=== PATIENT | female | born 1960 | race Caucasian/White ===

== ENCOUNTER 2020-02-22 13:00 | Outpatient (CLI) | payer OTHER, SELFPAY ==
[2020-02-22 14:22] LABS: Hematocrit 39.2 % (37.0-47.0); Hemoglobin 12.5 g/dL (11.5-15.3); Mean Corpuscular HGB Conc 31.9 g/dL (30.0-36.0); Mean Corpuscular Hemoglobin 29.5 pg (28.0-34.0); Mean Corpuscular Volume 92.5 fL (81-99); Mean Platelet Volume 9.5 fL (7.4-10.4); Platelet Count 342 10^3/cmm (130-400); Red Blood Count 4.24 10^6/uL (4.1-5.3); Red Cell Distribution Width 13.3 % (12.1-15.1); White Blood Count 9.4 10^3/uL (4.0-10.0)
[2020-02-22 14:57] LABS: Absolute Segmented Neutrophil 6.7 10/cmm (1.6-7.1); Segmented Neutrophils 72 %; Total Cells Counted 100 (0-100)
[2020-02-22 14:58] LABS: Lymphocytes 20 %; Monocytes Absolute 0.8 10^3/cmm (0.1-0.6); Platelet Estimate Normal (Normal); Smudge Cells Trace
[2020-02-22 14:59] LABS: Anisocytosis 1+
[2020-02-22 15:00] LABS: LAB Peripheral Smear Sent for Review
== END 2020-02-22 13:01 | disposition home or self-care (01) ==
LOC: ONCMED 13:04
PROVIDERS: PCP Nurse Practitioner Family; Visit Provider Internal Medicine Hematology & Oncology
DX: D72.810 Lymphocytopenia (principal)
CPT/HCPCS: 36415; 80500; 85007; 85027

== ENCOUNTER 2020-03-26 13:25 | Outpatient (CLI) | payer OTHER, SELFPAY ==
[2020-03-26 14:21] LABS: Hematocrit 43.2 % (37.0-47.0); Hemoglobin 14.2 g/dL (11.5-15.3); Mean Corpuscular HGB Conc 32.9 g/dL (30.0-36.0); Mean Corpuscular Hemoglobin 30.5 pg (28.0-34.0); Mean Corpuscular Volume 92.9 fL (81-99); Mean Platelet Volume 9.4 fL (7.4-10.4); Platelet Count 299 10^3/cmm (130-400); Red Blood Count 4.65 10^6/uL (4.1-5.3); Red Cell Distribution Width 13.5 % (12.1-15.1); White Blood Count 10.3 10^3/uL (4.0-10.0)
[2020-03-26 14:41] LABS: Alanine Aminotransferase 24 U/L (0-33); Albumin Level 4.6 g/dL (3.5-5.2); Alkaline Phosphatase 164 IU/L (35-105); Anion Gap 14.9 (5-19); Aspartate Amino Transferase 24 U/L (0-32); Blood Urea Nitrogen 11 mg/dL (8-23); Calcium 9.9 mg/dL (8.5-10.5); Carbon Dioxide 32 mmol/L (22-29); Chloride 97 mmol/L (98-107); Globulin 2.7 g/dL (1.3-4.6); Glomerular Filtration Rate 72.9 mL/min (90-130); Glucose 129 mg/dL (65-115); Osmolality Calculated 290 mOsm/kg (285-295); Sodium 141 mmol/L (136-145); Total Bilirubin 0.3 mg/dL (0.15-1.2); Total Protein 7.3 g/dL (6.6-8.7)
[2020-03-26 14:52] LABS: Potassium 2.9 mmol/L (3.5-5.1)
[2020-03-26 15:21] LABS: Absolute Neutrophil 8.8 10^3/cmm (1.4-6.5); Absolute Segmented Neutrophil 8.8 10/cmm (1.6-7.1); Lymphocytes 12 %; Lymphocytes Absolute 1.3 10^3/cmm (1.2-3.4); Monocytes Absolute 0.2 10^3/cmm (0.1-0.6); Platelet Estimate Normal (Normal); Segmented Neutrophils 85 %; Total Cells Counted 100 (0-100)
== END 2020-03-26 13:26 | disposition home or self-care (01) ==
LOC: LAB 13:28
PROVIDERS: PCP Nurse Practitioner Family; Visit Provider Nurse Practitioner Family
DX: D72.810 Lymphocytopenia (principal); R79.89 Other specified abnormal findings of blood chemistry
CPT/HCPCS: 80053; 85007; 85027

== ENCOUNTER 2020-03-28 13:24 | Outpatient (CLI) | payer OTHER, SELFPAY ==
[2020-03-28 14:50] LABS: Potassium 3.6 mmol/L (3.5-5.1)
== END 2020-03-28 13:25 | disposition home or self-care (01) ==
LOC: LAB 13:34
PROVIDERS: PCP Nurse Practitioner Family; Visit Provider Nurse Practitioner Family
DX: E87.6 Hypokalemia (principal)
CPT/HCPCS: 36415; 84132

== ENCOUNTER 2020-04-11 12:35 | Outpatient (CLI) | payer OTHER, SELFPAY ==
--- NOTE | 2020-04-11 12:42 | CT_ITS ---
WS: [id number] CT scan of the abdomen and pelvis with Oral and IV contrast. Additional two-dimensional coronal and s agittal reconstruction was performed. 04/11/2020 Clinical Data: ELEVATED LIVER Enzymes; elevated ALK/LYMPHOCYTOPENIA Comparison: CT abdomen pelvis, 10/01/2015. DLP: 1097.[address] scans at [facility] use at least one of these dose optimization techniques: automat ed exposure control; mA and/or kV adjustment per patient size (includes targeted exams where dose is matched to clinical indication); or iterative reconstruction. Findings: The lower lungs show no nodules, masses or effusions. The liver, spleen, adrenal glands and pancreas are normal. The gallbladder fossa has clips within fr om a cholecystectomy The kidneys show equal bilateral contrast excretion with no masses, hydronephrosis or calculi. There is a posterior lateral right renal cortical cyst measuring 1.3 cm. The abdominal aorta is normal in size. No appendicitis or diverticulitis is seen. There are sigmoid diverticula. Oral contrast is in the sto mach and small bowel and there is no bowel dilatation. No abscess, adenopathy, ascites, mass, obstruc tion or free air is seen. The bladder is unremarkable. No inguinal hernia is seen. The bones of the lower thorax, lumbar spine, pelvis, and hips are normal. CT/CT abdomen pelvis w con* [id number] Impression: Negative for acute intra-abdominal or pelvic abnormalities.
[2020-04-11] MEDS: iohexol 300 mg/mL 50 mL Btl PO (13:52)
[2020-04-11] MEDS: iohexol 300 mg/mL 100 mL Btl IV (14:26)
== END 2020-04-11 12:36 | disposition home or self-care (01) ==
LOC: RADWPI 12:39
PROVIDERS: PCP Nurse Practitioner Family; Visit Provider Nurse Practitioner Family
DX: R94.5 Abnormal results of liver function studies (principal); R74.8 Abnormal levels of other serum enzymes
CPT/HCPCS: 74177; Q9967

== ENCOUNTER 2020-05-20 05:46 | Day surgery (SDC) | payer OTHER, SELFPAY ==
[2020-05-17 12:06] VITALS: BMI 28.1
[2020-05-20 06:06] VITALS: BP 136/74; PULSE 72; RESP 16; TEMP 36.2; O2SAT 98
[2020-05-20] MEDS: sodium chloride 0.9% 1,000 ML 30 ML IV (06:08)
--- NOTE | 2020-05-20 06:15 | ANES.PREANE2 ---
Pre-Anesthetic Assessment Pre-Anesthetic Assessment: Height/Weight: Height 1.73 m Weight 83.915 kg Temp Pulse Resp BP Pulse Ox 97.2 F L 72 16 136/74 98 05/20/20 06:06 05/20/20 06:06 05/20/20 06:06 05/20/20 06:06 05/20/20 06:06 Preop Diagnosis: Right upper back mass Proposed Procedure: Operation Date: 05/20/20 07:00 Proposed Procedures p Excision of right upper back mass 64607 L72.3(Right) - Clarence Parker MD Operation Date: 05/20/20 11:30 Proposed Procedures p EXCISION OF RIGHT UPPER BACK MASS 89797 L72.3(Right) - Clarence Parker MD Familial anesthetic complications: None Was Beta Mahendra taken within 24 hours: N/A Last intake: Intake Last Liquid Date 05/19/20 Last Liquid Time 20:00 Last Solid Date 05/19/20 Last Solid Time 20:00 Social: Social History: No alcohol and No tobacco Exam: Pre-Anes Outpt Exam: alert, oriented x 3, clear to auscultation bilaterally and regular rate & rhythm Airway: Cervical ROM: WNL (has titanium cage - some stiffness) MP: 4 Dentition: False Metabolic: Metabolic: Thyroid Neuropsych: Neuropsych: None reported Anesthetic Plan: ASA status: 2 Anesthesia: MAC Risk of > 500 ml blood loss (7ml/kg in children): No Meds/Allergies Current Medications: Current Medications Generic Name Dose Route Start Last Admin Trade Name Freq PRN Reason Stop Dose Admin Sodium Chloride 1,000 mls @ 30 ml s/hr 05/20/20 06:00 05/20/20 06:08 Sodium Chloride 0.9% IV 05/21/20 05:59 30 mls/hr .Q24H UNIQUE Administration PFSH Anesthesia PFSH: Medical History Sebaceous cyst Surgical History History of colonoscopy with polypectomy History of hysterectomy for benign disease History of laparoscopic appendectomy History of laparoscopic cholecystectomy History of tonsillectomy Family History Denies family history of Anesthesia complication Bleeding disorder Social History Smoking and tobacco status: never smoked Second hand smoke exposure: No Alcohol intake: never Data Anesthesia Cardiac Studies: No Data to Display
--- NOTE | 2020-05-20 06:35 | W.PM.OPSUD ---
Surgery/Procedure H&P Update DATE OF PROCEDURE: May 20, 2020 DATE H&P PERFORMED: 05/13/20 H&P UPDATE INFORMATION: I have reviewed H&P completed within last 30 days, I have examined patient prior to procedure and No changes to prior documentation PREOP DIAGNOSIS: Right upper back mass PRIMARY INDICATION FOR PROCEDURE: The same PLANNED PROCEDURE: Operation Date: 05/20/20 07:00 Proposed Procedures p Excision of right upper back mass 51817 L72.3(Right) - Clarence Parker MD Operation Date: 05/20/20 11:30 Proposed Procedures p EXCISION OF RIGHT UPPER BACK MASS 63778 L72.3(Right) - Clarence Parker MD
[2020-05-20] MEDS: lidocaine 2% INJ 20 mL INJECTION (07:18)
--- NOTE | 2020-05-20 07:28 | P.OP_ITS ---
Operative Report Date of procedure: May 20, 2020 Pre-op Diagnosis: Right upper back mass Post-op diagnosis: same Procedure Done: Excision of right upper back mass likely sebaceous cyst 1.5 x 1.5 cm Specimens removed/disposition: Right upper back mass sutures marked superior and long sutures marked right lateral Surgeon: Clarence Parker Dry Cleaning Supervisor: Gege Reyes Circulating nurse Helene Anesthesia: MAC (fitness leader Dylan) Estimated blood loss (mL): 5 Condition: stable Disposition: same day Brief History: This is a pleasant 59 years old female patient presents to my office with a right upper back mass likely a sebaceous cyst that has been bothering her and draining for some time, did not show signs of infection at the time of evaluation. After further history physical examination and reviewing the chart I did vp & general counsel the patient for excision of right upper back mass. Informed consent per chart Procedure: After identifying the patient holding area, right upper back mass was marked before the procedure by myself, patient was then taken to the operative suite, was placed in left lateral position, all pressure points were padded .IV antibiotics were given per protocol,IV propofol was infused by the anesthesia provider,prep and drape of the right upper back was done under the usual sterile technique. Time-out was done verifying the patient's name/date of /planned procedure and destination after the procedure, all were in agreement. After palpation of the mass infiltration of lidocaine 2%. I did an elliptical incision on top of the mass including the punctum. I was able to dissect using sharp dissection and the whole cyst was excised from the surrounding tissues, short sutures marked superior and long sutures marked lateral. Thorough irrigation of the cavity was done and hemostasis, followed by deep dermal closure by 2-0 Vicryl, then 4/0 Monocryl for skin closure, followed by surgical glue then pressure dressing. Patient tolerated the procedure well, count of instruments,needles and sponges were completed at the end of the procedure. And then patient was taken to the recovery area in stable condition. I was present for the whole entire procedure Associated Problem List Diagnoses (1) Sebaceous cyst:
[2020-05-20 07:33] VITALS: BP 111/76; PULSE 81; RESP 16; TEMP 36.6; O2SAT 99
[2020-05-20 07:48] VITALS: BP 126/80; PULSE 82; RESP 16; TEMP 36.6; O2SAT 98
== END 2020-05-20 08:05 | disposition home or self-care (01) ==
PROVIDERS: PCP Nurse Practitioner Family; Visit Provider Surgery
PROC: (CPT 11404; principal; 2020-05-20 07:00)
DX: L72.3 Sebaceous cyst (principal)
CPT/HCPCS: 11404; 12345; 88304; J0690; J2704; J3010; J7030

== ENCOUNTER 2020-09-04 14:58 | Outpatient (CLI) | payer OTHER, SELFPAY ==
--- NOTE | 2020-09-04 15:17 | MR_ITS ---
WS: [id number] MRI CERVICAL SPINE NONCONTRAST TECHNIQUE: Sagittal T1, T2 and STIR imaging. Axial T2, gradient, and fiesta imaging. CLINICAL INFORMATION: CERVICALGIA COMPARISON: CT FINDINGS: Straightening of the normal cervical lordosis. Anterior interbody cervical fusion C4-C6. Cord signal is normal. No high-grade central canal stenosis. Alignment appears unchanged compared to C2-C3: Normal. C3-C4: Mild disc bulging with endplate ridging. Mild facet arthropathy. Spinal canal and foramen are patent. C4-C5: Anterior interbody cervical fusion. Mild facet arthropathy. Spinal canal and foramen are paten t. C5-C6: Anterior interbody cervical fusion. Mild left and no significant right foraminal narrowing. Sp inal canal is patent. C6-C7: Anterior cervical fusion. Mild left greater than right bony foraminal narrowing. Mild facet ar thropathy. Spinal canal is patent. C7-T1: Normal Visualized brain stem structures: Normal. Prevertebral soft tissues: Normal. Mild mucosal thickening in the sphenoid sinus MR/MR cervical spin wo con* [id number] IMPRESSION: 1. Straightening of the normal cervical lordosis. Cord signal is normal. 2. Anterior interbody cervical fusion C4-C6 appears unchanged. 3. Mild disc bulging C3-C4 with slight effacement of ventral thecal sac. 4. Mild left greater than right C6-C7 bony foraminal narrowing.
== END 2020-09-04 14:59 | disposition home or self-care (01) ==
LOC: RADWPI 15:05
PROVIDERS: PCP Nurse Practitioner Family; Visit Provider Specialist
DX: M50.223 Other cervical disc displacement at C6-C7 level (principal); M48.02 Spinal stenosis, cervical region
CPT/HCPCS: 72141

== ENCOUNTER → 2020-11-18 08:45 | Outpatient (BNVA) | payer OTHER, SELFPAY | PROVIDERS: PCP Nurse Practitioner Family; Referring Provider Anesthesiology Pain Medicine; Visit Provider Nurse Practitioner | DX: Z98.890 Other specified postprocedural states (principal); R51.9 Headache, unspecified; M54.2 Cervicalgia | CPT/HCPCS: 99204; 99205 ==

== ENCOUNTER → 2020-12-03 12:38 | Outpatient (BNVA) | payer OTHER, SELFPAY | PROVIDERS: PCP Nurse Practitioner Family; Visit Provider Specialist | DX: M54.81 Occipital neuralgia (principal); M54.2 Cervicalgia; G43.711 Chronic migraine without aura, intractable, with status migrainosus | CPT/HCPCS: 64405; 99213; J1030; J3490 ==

== ENCOUNTER 2020-12-04 20:00 | Outpatient (CLI) | payer OTHER, SELFPAY | END 2020-12-04 20:01 | disposition home or self-care (01) | LOC: SLEEP 12-05 09:12 | PROVIDERS: PCP Nurse Practitioner Family; Visit Provider Anesthesiology Pain Medicine | DX: G47.10 Hypersomnia, unspecified (principal); R06.83 Snoring; R53.83 Other fatigue; G47.33 Obstructive sleep apnea (adult) (pediatric) | CPT/HCPCS: 95810 ==

== ENCOUNTER 2020-12-25 20:00 | Outpatient (CLI) | payer OTHER, SELFPAY | END 2020-12-25 20:01 | disposition home or self-care (01) | LOC: SLEEP 12-26 08:33 | PROVIDERS: PCP Nurse Practitioner Family; Visit Provider Anesthesiology Pain Medicine | DX: G47.33 Obstructive sleep apnea (adult) (pediatric) (principal) | CPT/HCPCS: 95811 ==

== ENCOUNTER 2021-03-25 15:09 | Emergency (ER) | payer OTHER, SELFPAY ==
[2021-03-25 15:29] VITALS: BP 125/83; PULSE 81; RESP 15; TEMP 36.8; O2SAT 98; BMI 25.4
--- NOTE | 2021-03-25 15:51 | ED_ITS ---
Documented by User: LAURA De La Rosa 03/25/21 16:17 HPI - General Adult General: Chief complaint: General Medical Stated complaint: PROBLEMS WITH NERVE STIMULATOR Time Seen by Provider: 03/25/21 15:38 Source: patient Mode of arrival: ambulatory Limitations: no limitations History of Present Illness: HPI narrative: Patient is a 60-year-old female who presents to ED today with multiple complaints that she feels is secondary to a spinal cord stimulator programming she had performed yesterday. Patient tells me she had a spinal cord stimulator placed by Dr. Torres in [place] approximately 2 weeks ago. She tells me she met with a containers sales representative [employer] yesterday who was performing programming to the stimulator and states they accidentally turned it all the way up . She states she had an episode of approximately 2 to 3 minutes where her muscles in her upper extremity convulsed and contracted. She states the heating technician was able to turn the stimulator off but states since that incident patient has had a headache, diffuse muscle aches/pains, had a few episodes of vomiting yesterday, has had a diarrhea today and complains of chills. Onset (ago): day(s) (yesterday) Pain Consistency: constant Relieving factors: none Exacerbating factors: none Associated symptoms: Reports headache(s), nausea and vomiting; Deny chest pain, confusion, dyspnea, rash, palpitations or syncope Treatments prior to arrival: none Review of Systems Const: Reports: chills and body aches; Denies: fever(s), change in appetite, change in weight, fatigue or night sweats Eyes: Denies: change in vision, blurry vision, photophobia, floaters or seeing flashes ENMT: Denies: throat pain, odynophagia or nasal congestion Card: Denies: chest pain, palpitations, irregular heart rhythm, edema, swelling of feet/ankles, lightheadedness, syncope, pre-syncope or dyspnea on exertion Resp: Denies: dyspnea, productive cough or chest congestion GI: Reports: abdominal pain (cramping), nausea, vomiting and diarrhea; Denies: hematemesis, hematochezia or melena : Denies: flank pain, difficulty voiding, dysuria, urinary frequency, urinary urgency or urinary hesitancy Musc: Reports: neck pain; Denies: back pain, extremity pain, extremity swelling or joint swelling Skin/Breast: Denies: rash Neuro: Reports: headache(s) and sensory changes (reports it feels like her insides are spasming ); Denies: numbness in extremities, weakness in extremities, lack of coordination, frequent falls, dizziness or confusion PFSH ED PFSH: Medical History Atypical chest pain Cervicalgia GERD (gastroesophageal reflux disease) Headache Hyperlipidemia Hypertension Hypothyroid Sebaceous cyst Sinus headache Surgical History History of colonoscopy with polypectomy History of hysterectomy for benign disease History of laparoscopic appendectomy History of laparoscopic cholecystectomy History of tonsillectomy Family History Other CAD (coronary artery disease) Cancer Diabetes Family history of premature coronary artery disease Hyperlipidemia Hypertension Lung disease Stroke Denies family history of Dementia Psychiatric illness Chronic kidney disease (CKD) Suicide Anesthesia complication Bleeding disorder Social History Smoking and tobacco status: never smoked Second hand smoke exposure: No Alcohol intake: never History of recent travel: No Physical Exam Const: COMMON NORMALS: no acute distress, average body habitus, patient oriented x3, no limitations, healthy appearing, alert and well nourished GENERAL APPEARANCE: cooperative ORIENTATION/CONSCIOUSNESS: Yes awake, Yes oriented to person, Yes oriented to place and Yes oriented to time HENMT: COMMON NORMALS: normocephalic and atraumatic HEAD & SCALP: normoc ephalic and atraumatic Neck/C-Spine: OTHER: midline cervical scar appears to be well healing; no drainage; pt reports she is instructed not to do much ROM of her neck so this testing was not performed Resp: COMMON NORMALS: normal respiratory effort and clear to auscultation bilaterally AUSCULTATION: clear to auscultation bilaterally Cardio: COMMON NORMALS: regular rate and regular rhythm RATE: regular rate RHYTHM: regular rhythm GI: COMMON NORMALS: Normal to inspection, nondistended, normoactive bowel sounds present, Soft to palpation, No hepatosplenomegaly present and no masses PALPATION: Yes Soft to palpation, Yes Tenderness to palpation present (GI) (mild diffusely) and Yes No hepatosplenomegaly present Back/Pelvis: COMMON NORMALS: thoracic and lumbar spine normal to inspection, no thoracic nor lumbar tenderness and thoraco-lumbar ROM normal Extremity: COMMON NORMALS: normal to inspection and full ROM GENERAL: Yes normal exam except as noted Neuro: HONG COMA SCALE: document GCS findings Hong coma scale eye opening: Spontaneous Peytona coma scale verbal response: Orientated Peytona coma scale motor response: Obey commands Hong coma scale total score: 15 COMMON NORMALS: patient oriented x3, CN's II-XII intact bilaterally, moves all extremities, no focal motor deficits and no sensory deficits noted SENSORIUM/ORIENTATION: Yes alert, Yes oriented to person, Yes oriented to place and Yes oriented to time SPEECH: speech normal MOTOR EXAM: 5/5 motor strength present throughout Skin: COMMON NORMALS: no rashes or lesions noted NARRATIVE SKIN EXAM: surgical sites appear to be healing well GENERAL SKIN EXAM: no rashes or lesions noted TRAUMA: no lacerations or abrasions Course Consultations: Consultation #1: Dr. Torres-agreed that her symptoms do not seem consistent with a programming error; recommended obtaining CT imaging to evaluate for lead placement, presence of a hematoma/seroma, etc and can call with any abnormal results; otherwise upload images and he can view them tomorrow and schedule follow up visit Vital Signs: Vital signs: Vital Signs Temperature 98.4 F 03/25/21 16:17 Pulse Rate 76 03/25/21 19:16 Respiratory Rate 18 03/25/21 19:16 Blood Pressure 117/56 03/25/21 19:16 Pulse Oximetry 98 03/25/21 19:16 [facility] - General Adult Lab Data: Labs: Lab Results 03/25/21 03/25/21 03/25/21 Range/Units 16:05 17:00 17:00 WBC 14.3 H (4.0-10.0) 10^3/ uL RBC 4.85 (4.1-5.3) 10^6/u L Hgb 14.1 (11.5-15.3) g/dL Hct 43.0 (37.0-47.0) % MCV 88.7 (81-99) fL MCH 29.1 (28.0-34.0) pg MCHC 32.8 (30.0-36.0) g/dL RDW 13.3 (12.1-15.1) % Plt Count 322 (130-400) 10^3/c mm MPV 9.8 (7.4-10.4) fL Neut % (Auto) 78.1 % Lymph % (Auto) 12.9 % [place] % (Auto) 7.8 % Eos % (Auto) 0.5 % Baso % (Auto) 0.4 % Neut # (Auto) 11.16 H (1.8-7.7) 10^3/u L Lymph # (Auto) 1.8 (0.8-4.8) 10^3/u L [place] # (Auto) 1.1 H (0.2-0.9) 10^3/u L Eos # (Auto) 0.1 (0.0-0.8) 10^3/u L Baso # (Auto) 0.1 (0.0-0.1) 10^3/u L Nucleated RBC % (a uto) 0 % Nucleated RBCs # 0.0 /100WBC Sodium 139 (136-145) mmol/L Potassium 3.2 L (3.5-5.1) mmol/L Chloride 98 (98-107) mmol/L Carbon Dioxide 30 H (22-29) mmol/L Anion Gap 14.2 (5-19) BUN 12 (8-23) mg/dL Creatinine 0.6 (0.5-0.9) mg/dL GFR Calculation 101.3 (90-130) mL/min Glucose 82 (65-115) mg/dL Calculated Osmolal ity 287 (285-295) mOsm/k g Lactic Acid (0.5-2.2) mmol/L Calcium 9.3 (8.5-10.5) mg/dL Total Bilirubin 0.3 (0.15-1.2) mg/dL AST 16 (0-32) U/L ALT 11 (0-33) U/L Alkaline Phosphata se 213 H (35-105) IU/L Creatine Kinase 34 (26-192) U/L Total Protein 7.1 (6.6-8.7) g/dL Albumin 4.4 (3.5-5.2) g/dL Globulin 2.7 (1.3-4.6) g/dL Lipase 69 H (13-60) U/L TSH 2.60 (0.27-4.20) uIU/ mL Urine Color Yellow (Yellow) Urine Appearance Clear (CLEAR) Urine pH 8 H (5-7) Ur Specific Gravit y 1.010 (1.005-1.030) Urine Protein Neg (Negative) Urine Glucose (UA) Norm (Normal) Urine Ketones Negative (Negative) Urine Blood Neg (Negative) Urine Nitrate Negative (Negative) Urine Bilirubin Neg (Negative) Prot Sulfosalicyli c Acd Negative (Negative) Urine Urobilinogen Norm (Negative) mg/dL Ur Leukocyte Earnestine ase Negative (Negative) SARS-CoV-2 Ag (Rap id) (Negative) 03/25/21 03/25/21 Range/Units 17:00 17:00 WBC (4.0-10.0) 10^3/ uL RBC (4.1-5.3) 10^6/u L Hgb (11.5-15.3) g/dL Hct (37.0-47.0) % MCV (81-99) fL MCH (28.0-34.0) pg MCHC (30.0-36.0) g/dL RDW (12.1-15.1) % Plt Count (130-400) 10^3/c mm MPV (7.4-10.4) fL Neut % (Auto) % Lymph % (Auto) % [place] % (Auto) % Eos % (Auto) % Baso % (Auto) % Neut # (Auto) (1.8-7.7) 10^3/u L Lymph # (Auto) (0.8-4.8) 10^3/u L [place] # (Auto) (0.2-0.9) 10^3/u L Eos # (Auto) (0.0-0.8) 10^3/u L Baso # (Auto) (0.0-0.1) 10^3/u L Nucleated RBC % (a uto) % Nucleated RBCs # /100WBC Sodium (136-145) mmol/L Potassium (3.5-5.1) mmol/L Chloride (98-107) mmol/L Carbon Dioxide (22-29) mmol/L Anion Gap (5-19) BUN (8-23) mg/dL Creatinine (0.5-0.9) mg/dL GFR Calculation (90-130) mL/min Glucose (65-115) mg/dL Calculated Osmolal ity (285-295) mOsm/k g Lactic Acid 0.9 (0.5-2.2) mmol/L Calcium (8.5-10.5) mg/dL Total Bilirubin (0.15-1.2) mg/dL AST (0-32) U/L ALT (0-33) U/L Alkaline Phosphata se (35-105) IU/L Creatine Kinase (26-192) U/L Total Protein (6.6-8.7) g/dL Albumin (3.5-5.2) g/dL Globulin (1.3-4.6) g/dL Lipase (13-60) U/L TSH (0.27-4.20) uIU/ mL Urine Color (Yellow) Urine Appearance (CLEAR) Urine pH (5-7) Ur Specific Gravit y (1.005-1.030) Urine Protein (Negative) Urine Glucose (UA) (Normal) Urine Ketones (Negative) Urine Blood (Negative) Urine Nitrate (Negative) Urine Bilirubin (Negative) Prot Sulfosalicyli c Acd (Negative) Urine Urobilinogen (Negative) mg/dL Ur Leukocyte Earnestine ase (Negative) SARS-CoV-2 Ag (Rap id) Negative (Negative) Discharge Plan Discharge Patient Disposition: Home Clinical Impression: Gastroenteritis, Hypokalemia Condition: Stable Prescriptions: New ondansetron 4 mg tablet,disintegrating 4 mg PO Q8H PRN (Reason: nausea and vomiting) Qty: 15 RF: 0 No Action tramadol 50 mg tablet 50 mg PO Q4H PRNRF: 0 escitalopram oxalate 10 mg tablet 10 mg PO DAILY RF: 0 tizanidine 2 mg capsule 2 mg PO BID PRN (Reason: muscle spasticity) Qty: 60 RF: 0 aspirin [Adult Low Dose Aspirin] 81 mg tablet,delayed release (DR/EC) 81 mg PO DAILY RF: 0 docusate sodium 100 mg tablet 100 mg PO DAILY RF: 0 multivitamin Tablet 1 tab PO DAILY RF: 0 bupropion HCl 300 mg tablet extended release 24 hr 300 mg PO QAM RF: 0 trazodone 50 mg tablet 50 mg PO DAILY RF: 0 gabapentin 300 mg capsule 300 mg PO DAILY RF: 0 cyclobenzaprine 10 mg tablet 10 mg PO TID PRNRF: 0 amitriptyline 25 mg tablet 25 mg PO DAILY Qty: 30 RF: 0 triamterene-hydrochlorothiazid 37.5-25 mg Capsule 1 cap PO DAILY RF: 0 levothyroxine 88 mcg Tablet 88 mcg PO DAILY RF: 0 pantoprazole 40 mg Tablet,Delayed Release (Dr/Ec) 40 mg PO DAILY RF: 0 [place] 5-325 mg tablet 1 tab PO Q6H PRN (Reason: pain) Qty: 14 RF: 0 Discharge Orders: Discharge ED (Routine); Ordered 03/25/21 Ordered By: Corky Dumont Referrals: Jinny Fortune APN [Primary Care Provider] - Discharge Diet: Advance as tolerated and Clear Liquid Discharge Activity: Increase activity as tolerated Patient Instructions: Hypokalemia (ED), Gastroenteritis (ED) Activity Restrictions/Additional Instructions: Follow-up with medical provider as directed in 3 to 5 days for reevaluation. Your potassium level was 3.2 which is just below the normal 3.5 level. You are given a dose of oral potassium in the ED, but when you meet with your primary care doctor have them recheck your potassium levels. Take medications as prescribed. Return to the ER or your medical provider if condition worsens. Please read and understand discharge instructions. Thank you for choosing [facility] for your healthcare needs today. Please realize this is an emergency room and that we are providing you with a medical screening exam and this may not be complete and all inclusive of all the testing and or work up that you may need to determine your ailment or severity of your illness. It is very important that you follow up as instructed or that you return to the Emergency Department should you have concerns or if your condition changes or worsens in any way. Sign Out Sign Out Data: Patient Sign Out occurred on 03/25/21 at 17:11. Patient's care was discussed, and care was transferred from to LAURA Albrecht. Coding Level of Care Code ED Maintenance Equipment Operator for Chg Fwd Exam Comprehensive Documented by User: LAURA Albrecht 03/26/21 03:11 HPI - General Adult General: Chief complaint: General Medical Stated complaint: PROBLEMS WITH NERVE STIMULATOR Time Seen by Provider: 03/25/21 15:38 [facility] ED PFSH: Medical History Atypical chest pain Cervicalgia GERD (gastroesophageal reflux disease) Headache Hyperlipidemia Hypertension Hypothyroid Sebaceous cyst Sinus headache Surgical History History of colonoscopy with polypectomy History of hysterectomy for benign disease History of laparoscopic appendectomy History of laparoscopic cholecystectomy History of tonsillectomy Family History Other CAD (coronary artery disease) Cancer Diabetes Family history of premature coronary artery disease Hyperlipidemia Hypertension Lung disease Stroke Denies family history of Dementia Psychiatric illness Chronic kidney disease (CKD) Suicide Anesthesia complication Bleeding disorder Social History Smoking and tobacco status: never smoked Second hand smoke exposure: No Alcohol intake: never History of recent travel: No Course Reevaluation(s): Reevaluation #1: After patient received IV fluids and Zofran her nausea improved greatly and she says she is feeling a lot better. Time: 18:37 Vital Signs: Vital signs: Vital Signs Temperature 98.4 F 03/25/21 16:17 Pulse Rate 76 03/25/21 19:16 Respiratory Rate 18 03/25/21 19:16 Blood Pressure 117/56 03/25/21 19:16 Pulse Oximetry 98 03/25/21 19:16 MDM - General Adult MDM Narrative: Medical decision making narrative: Patient is a 60-year-old female comes to the ED with nausea, emesis and diarrhea. Patient says that her symptoms started right after her spinal cord stimulator was accidentally put on the high setting causing her to have upper extremity muscle contraction sitting convulsions for approximately 2 to 3 minutes. They are able to turn the stimulator down and but is currently off. This incident occurred yesterday and she has been having episodes of nausea vomiting diarrhea ever since. I took over patient case from the physician clinical nursing assistant Nuris Singh. She performed initial history and physical exam and also talked with Dr. Torres the one who shirley chante patient's spinal cord stimulator and he recommended patient get a CT of the cervical spine. White blood cell count 14.3 and potassium 3.2. The rest of CBC and CMP were unremarkable. Lactic 0.9, creatine phosphokinase 34, TSH 2.6. Covid antigen was negative. CT of cervical spine showed no acute findings. Patient was given IV fluids, Zofran and oral potassium while here in the ED. Patient said her nausea improved greatly after Zofran. She was diagnosed with gastroenteritis and hypokalemia. Patient was then discharged home with a prescription for Zofran. She was told to follow-up with her PCP in 3 to 5 days days for reevaluation and to recheck potassium level. Return to ED precautions given. Patient understood agree with plan. Lab Data: Attestation: I reviewed the patient's lab results. Labs: Lab Results 03/25/21 03/25/21 03/25/21 Range/Units 16:05 17:00 17:00 WBC 14.3 H (4.0-10.0) 10^3/ uL RBC 4.85 (4.1-5.3) 10^6/u L Hgb 14.1 (11.5-15.3) g/dL Hct 43.0 (37.0-47.0) % MCV 88.7 (81-99) fL MCH 29.1 (28.0-34.0) pg MCHC 32.8 (30.0-36.0) g/dL RDW 13.3 (12.1-15.1) % Plt Count 322 (130-400) 10^3/c mm MPV 9.8 (7.4-10.4) fL Neut % (Auto) 78.1 % Lymph % (Auto) 12.9 % [place] % (Auto) 7.8 % Eos % (Auto) 0.5 % Baso % (Auto) 0.4 % Neut # (Auto) 11.16 H (1.8-7.7) 10^3/u L Lymph # (Auto) 1.8 (0.8-4.8) 10^3/u L [place] # (Auto) 1.1 H (0.2-0.9) 10^3/u L Eos # (Auto) 0.1 (0.0-0.8) 10^3/u L Baso # (Auto) 0.1 (0.0-0.1) 10^3/u L Nucleated RBC % (a uto) 0 % Nucleated RBCs # 0.0 /100WBC Sodium 139 (136-145) mmol/L Potassium 3.2 L (3.5-5.1) mmol/L Chloride 98 (98-107) mmol/L Carbon Dioxide 30 H (22-29) mmol/L Anion Gap 14.2 (5-19) BUN 12 (8-23) mg/dL Creatinine 0.6 (0.5-0.9) mg/dL GFR Calculation 101.3 (90-130) mL/min Glucose 82 (65-115) mg/dL Calculated Osmolal ity 287 (285-295) mOsm/k g Lactic Acid (0.5-2.2) mmol/L Calcium 9.3 (8.5-10.5) mg/dL Total Bilirubin 0.3 (0.15-1.2) mg/dL AST 16 (0-32) U/L ALT 11 (0-33) U/L Alkaline Phosphata se 213 H (35-105) IU/L Creatine Kinase 34 (26-192) U/L Total Protein 7.1 (6.6-8.7) g/dL Albumin 4.4 (3.5-5.2) g/dL Globulin 2.7 (1.3-4.6) g/dL Lipase 69 H (13-60) U/L TSH 2.60 (0.27-4.20) uIU/ mL Urine Color Yellow (Yellow) Urine Appearance Clear (CLEAR) Urine pH 8 H (5-7) Ur Specific Gravit y 1.010 (1.005-1.030) Urine Protein Neg (Negative) Urine Glucose (UA) Norm (Normal) Urine Ketones Negative (Negative) Urine Blood Neg (Negative) Urine Nitrate Negative (Negative) Urine Bilirubin Neg (Negative) Prot Sulfosalicyli c Acd Negative (Negative) Urine Urobilinogen Norm (Negative) mg/dL Ur Leukocyte Earnestine ase Negative (Negative) SARS-CoV-2 Ag (Rap id) (Negative) 03/25/21 03/25/21 Range/Units 17:00 17:00 WBC (4.0-10.0) 10^3/ uL RBC (4.1-5.3) 10^6/u L Hgb (11.5-15.3) g/dL Hct (37.0-47.0) % MCV (81-99) fL MCH (28.0-34.0) pg MCHC (30.0-36.0) g/dL RDW (12.1-15.1) % Plt Count (130-400) 10^3/c mm MPV (7.4-10.4) fL Neut % (Auto) % Lymph % (Auto) % [place] % (Auto) % Eos % (Auto) % Baso % (Auto) % Neut # (Auto) (1.8-7.7) 10^3/u L Lymph # (Auto) (0.8-4.8) 10^3/u L [place] # (Auto) (0.2-0.9) 10^3/u L Eos # (Auto) (0.0-0.8) 10^3/u L Baso # (Auto) (0.0-0.1) 10^3/u L Nucleated RBC % (a uto) % Nucleated RBCs # /100WBC Sodium (136-145) mmol/L Potassium (3.5-5.1) mmol/L Chloride (98-107) mmol/L Carbon Dioxide (22-29) mmol/L Anion Gap (5-19) BUN (8-23) mg/dL Creatinine (0.5-0.9) mg/dL GFR Calculation (90-130) mL/min Glucose (65-115) mg/dL Calculated Osmolal ity (285-295) mOsm/k g Lactic Acid 0.9 (0.5-2.2) mmol/L Calcium (8.5-10.5) mg/dL Total Bilirubin (0.15-1.2) mg/dL AST (0-32) U/L ALT (0-33) U/L Alkaline Phosphata se (35-105) IU/L Creatine Kinase (26-192) U/L Total Protein (6.6-8.7) g/dL Albumin (3.5-5.2) g/dL Globulin (1.3-4.6) g/dL Lipase (13-60) U/L TSH (0.27-4.20) uIU/ mL Urine Color (Yellow) Urine Appearance (CLEAR) Urine pH (5-7) Ur Specific Gravit y (1.005-1.030) Urine Protein (Negative) Urine Glucose (UA) (Normal) Urine Ketones (Negative) Urine Blood (Negative) Urine Nitrate (Negative) Urine Bilirubin (Negative) Prot Sulfosalicyli c Acd (Negative) Urine Urobilinogen (Negative) mg/dL Ur Leukocyte Earnestine ase (Negative) SARS-CoV-2 Ag (Rap id) Negative (Negative) Imaging Data^: Other CT: Attestation: I personally reviewed and interpreted this imaging study as follows: Radiologist's impression: [employer] [id number] Scan ReportSigned Patient: Nat Horton AUnit #: [id number]: [id number]#:[id number]/Sex: 60 / FADM Date: 03/25/21Loc: ERRoom/Bed:Attending Dr: Ordering Provider/Ordering MD: Nuris Singh Date of Service: 03/25/21 Procedure(s): CT cervical spin wo con* [id number] Accession Number(s): [id number] Report Number: [id number] PROCEDURE INFORMATION: Exam: CT Cervical Spine Without Contrast Exam date and time: 03/25/2021 4:00 PM Age: 60 years old Clinical indication: Pain; Other: Headache; Prior surgery; Surgery date: <1 month; Surgery type: Stimulator placed 2 wks; Additional info: Stimulator placed 2 wks ago; ADHIKARI, spasms TECHNIQUE: Imaging protocol: Computed tomography images of the cervical spine without contrast. Radiation optimization: All CT scans at this facility use at least one of these dose optimization techniques: automated exposure control; mA and/or kV adjustment per patient size (includes targeted exams where dose is matched to clinical indication); or iterative reconstruction. COMPARISON: MR cervical spin wo con* [id number] 09/04/2020 3:25 PM RADIATION DOSE METRICS: Total DLP (mGy-cm): 617.61 FINDINGS: Tubes, catheters and devices: Posterior epidural stimulator device at C2-C3. Vertebrae: No acute cervical spine fractures. Unremarkable cervical spine alignment. ACDF changes at C4, C5, C6 with intervertebral disc spacer devices with unremarkable alignment without postsurgical complication. There is a laminectomy at C4. Unremarkable bone mineralization. No lytic, aggressive bone lesion. Soft tissues: Unremarkable. Lungs: Lung apices are normal. CT/CT cervical spin wo con* [id number] IMPRESSION: 1. No acute cervical spine abnormality. 2. Postsurgical changes of cervical spine without complication identified. Radiation Dose CTDIVOL = (mGy): DLP = 617.61 (mGy-cm) Dictated By:Sergio Zamora By:Sergio Zamora Date/Time:03/25/21 1704DD/ 01 Discharge Plan Discharge Patient Disposition: Home Clinical Impression: Gastroenteritis, Hypokalemia Condition: Stable Prescriptions: New ondansetron 4 mg tablet,disintegrating 4 mg PO Q8H PRN (Reason: nausea and vomiting) Qty: 15 RF: 0 No Action tramadol 50 mg tablet 50 mg PO Q4H PRNRF: 0 escitalopram oxalate 10 mg tablet 10 mg PO DAILY RF: 0 tizanidine 2 mg capsule 2 mg PO BID PRN (Reason: muscle spasticity) Qty: 60 RF: 0 aspirin [Adult Low Dose Aspirin] 81 mg tablet,delayed release (DR/EC) 81 mg PO DAILY RF: 0 docusate sodium 100 mg tablet 100 mg PO DAILY RF: 0 multivitamin Tablet 1 tab PO DAILY RF: 0 bupropion HCl 300 mg tablet extended release 24 hr 300 mg PO QAM RF: 0 trazodone 50 mg tablet 50 mg PO DAILY RF: 0 gabapentin 300 mg capsule 300 mg PO DAILY RF: 0 cyclobenzaprine 10 mg tablet 10 mg PO TID PRNRF: 0 amitriptyline 25 mg tablet 25 mg PO DAILY Qty: 30 RF: 0 triamterene-hydrochlorothiazid 37.5-25 mg Capsule 1 cap PO DAILY RF: 0 levothyroxine 88 mcg Tablet 88 mcg PO DAILY RF: 0 pantoprazole 40 mg Tablet,Delayed Release (Dr/Ec) 40 mg PO DAILY RF: 0 [place] 5-325 mg tablet 1 tab PO Q6H PRN (Reason: pain) Qty: 14 RF: 0 Discharge Orders: Discharge ED (Routine); Ordered 03/25/21 Ordered By: Corky Dumont Referrals: Fortune,Jinny, INTERNATIONAL ORGANIZER [Primary Care Provider] - Discharge Diet: Advance as tolerated and Clear Liquid Discharge Activity: Increase activity as tolerated Patient Instructions: Hypokalemia (ED), Gastroenteritis (ED) Activity Restrictions/Additional Instructions: Follow-up with medical provider as directed in 3 to 5 days for reevaluation. Your potassium level was 3.2 which is just below the normal 3.5 level. You are given a dose of oral potassium in the ED, but when you meet with your primary care doctor have them recheck your potassium levels. Take medications as prescribed. Return to the ER or your medical provider if condition worsens. Please read and understand discharge instructions. Thank you for choosing [facility] for your healthcare needs today. Please realize this is an emergency room and that we are providing you with a medical screening exam and this may not be complete and all inclusive of all the testing and or work up that you may need to determine your ailment or severity of your illness. It is very important that you follow up as instructed or that you return to the Emergency Department should you have concerns or if your condition changes or worsens in any way. Sign Out Sign Out Data: Patient Sign Out occurred on 03/25/21 at 17:11. Patient's care was discussed, and care was transferred from to LAURA Albrecht. Coding Level of Care Code ED Maintenance Equipment Operator for [place] Fwd Exam Comprehensive
--- NOTE | 2021-03-25 16:00 | CTR_ITS ---
PROCEDURE INFORMATION: Exam: CT Cervical Spine Without Contrast Exam date and time: 03/25/2021 4:00 PM Age: 60 years old Clinical indication: Pain; Other: Headache; Prior surgery; Surgery date: <1 month; Surgery type: Stimulator placed 2 wks; Additional info: Stimulator placed 2 wks ago; ADHIKARI, spasms TECHNIQUE: Imaging protocol: Computed tomography images of the cervical spine without contrast. Radiation optimization: All CT scans at this facility use at least one of these dose optimization techniques: automated exposure control; mA and/or kV adjustment per patient size (includes targeted exams where dose is matched to clinical indication); or iterative reconstruction. COMPARISON: MR cervical spin wo con* [id number] 09/04/2020 3:25 PM RADIATION DOSE METRICS: Total DLP (mGy-cm): 617.61 FINDINGS: Tubes, catheters and devices: Posterior epidural stimulator device at C2-C3. Vertebrae: No acute cervical spine fractures. Unremarkable cervical spine alignment. ACDF changes at C4, C5, C6 with intervertebral disc spacer devices with unremarkable alignment without postsurgical complication. There is a laminectomy at C4. Unremarkable bone mineralization. No lytic, aggressive bone lesion. Soft tissues: Unremarkable. Lungs: Lung apices are normal. CT/CT cervical spin wo con* [id number] IMPRESSION: 1. No acute cervical spine abnormality. 2. Postsurgical changes of cervical spine without complication identified. Radiation Dose CTDIVOL = (mGy): DLP = 617.61 (mGy-cm)
[2021-03-25 16:17] VITALS: BP 138/81; PULSE 78; RESP 12; TEMP 36.9; O2SAT 99
[2021-03-25 16:34] LABS: Add Urine Microscopic? NO; Charge for UA Resulting for Rev
[2021-03-25 16:48] LABS: Bilirubin Urine Neg (Negative); Blood Urine Neg (Negative); Glucose Urine UA Norm (Normal); Ketones Urine Negative (Negative); Leukocyte Esterase Urine Negative (Negative); Nitrate Urine Negative (Negative); Protein Urine Neg (Negative); Sulfosalicylic Acid Urine Negative (Negative); Urine Appearance Clear (CLEAR); Urine Color Yellow (Yellow); Urobilinogen Urine Norm (Negative); pH Urine 8 (5-7)
[2021-03-25] MEDS: sodium chloride 0.9% 1,000 ML 999 ML IV (17:05)
[2021-03-25 17:14] LABS: Basophils # 0.1 10^3/uL (0.0-0.1); Basophils % 0.4 %; Eosinophils # 0.1 10^3/uL (0.0-0.8); Eosinophils % 0.5 %; Hemoglobin 14.1 g/dL (11.5-15.3); Lymphocytes # 1.8 10^3/uL (0.8-4.8); Lymphocytes % 12.9 %; Mean Corpuscular HGB Conc 32.8 g/dL (30.0-36.0); Mean Corpuscular Hemoglobin 29.1 pg (28.0-34.0); Mean Corpuscular Volume 88.7 fL (81-99); Mean Platelet Volume 9.8 fL (7.4-10.4); Monocytes # 1.1 10^3/uL (0.2-0.9); Monocytes % 7.8 %; Neutrophils # 11.16 10^3/uL (1.8-7.7); Neutrophils % 78.1 %; Nucleated Red Blood Cells % 0 %; Platelet Count 322 10^3/cmm (130-400); Red Blood Count 4.85 10^6/uL (4.1-5.3); Red Cell Distribution Width 13.3 % (12.1-15.1); White Blood Count 14.3 10^3/uL (4.0-10.0)
[2021-03-25 17:33] LABS: Lactic Sepsis W/Reflex 0.9 mmol/L (0.5-2.2)
[2021-03-25 17:43] LABS: Alanine Aminotransferase 11 U/L (0-33); Albumin Level 4.4 g/dL (3.5-5.2); Alkaline Phosphatase 213 IU/L (35-105); Anion Gap 14.2 (5-19); Aspartate Amino Transferase 16 U/L (0-32); Blood Urea Nitrogen 12 mg/dL (8-23); Calcium 9.3 mg/dL (8.5-10.5); Carbon Dioxide 30 mmol/L (22-29); Chloride 98 mmol/L (98-107); Creatine Phosphokinase 34 U/L (26-192); Globulin 2.7 g/dL (1.3-4.6); Glomerular Filtration Rate 101.3 mL/min (90-130); Glucose 82 mg/dL (65-115); Lipase 69 U/L (13-60); Osmolality Calculated 287 mOsm/kg (285-295); Potassium 3.2 mmol/L (3.5-5.1); Sodium 139 mmol/L (136-145); Total Bilirubin 0.3 mg/dL (0.15-1.2); Total Protein 7.1 g/dL (6.6-8.7)
[2021-03-25] MEDS: ondansetron 2 mg/ML SDV 2 mL 4 MG IVP (17:49)
[2021-03-25] MEDS: potassium chloride ER 20 mEq Tablet PO (18:11)
[2021-03-25 18:48] VITALS: BP 116/64; PULSE 74; RESP 14; O2SAT 98
[2021-03-25 18:48] LABS: SARS Covid-2 Antigen Negative (Negative)
[2021-03-25 19:16] VITALS: BP 117/56; PULSE 76; RESP 18; O2SAT 98
== END 2021-03-25 19:17 | disposition home or self-care (01) ==
PROVIDERS: Physician Assistant; Emergency Provider Physician Assistant; PCP Nurse Practitioner Family
DX: K52.9 Noninfective gastroenteritis and colitis, unspecified (principal); E87.6 Hypokalemia; Z79.82 Long term (current) use of aspirin; E78.5 Hyperlipidemia, unspecified; I10 Essential (primary) hypertension; Z20.822 Contact with and (suspected) exposure to COVID-19
CPT/HCPCS: 72125; 80053; 81003; 82550; 83605; 83690; 84443; 85025; 87426; 96361; 96374; 99284; J2405; J7030

== ENCOUNTER → 2021-05-06 14:59 | Outpatient (BNVA) | payer OTHER, SELFPAY | PROVIDERS: PCP Nurse Practitioner Family; Visit Provider Specialist | DX: R51.9 Headache, unspecified (principal); F07.81 Postconcussional syndrome; M54.2 Cervicalgia; R27.0 Ataxia, unspecified; Z96.82 Presence of neurostimulator | CPT/HCPCS: 99214; 99215 ==

== ENCOUNTER 2021-08-05 11:19 | Outpatient (RCR) | payer OTHER, SELFPAY | END 2021-08-26 23:59 | disposition home or self-care (01) | LOC: SST 11:19 | PROVIDERS: PCP Nurse Practitioner Family; Visit Provider Psychiatry & Neurology Neurology | DX: T75.4XXA Electrocution, initial encounter (principal); R41.841 Cognitive communication deficit | CPT/HCPCS: 92507; 96125 ==

== ENCOUNTER 2021-08-27 06:00 | Outpatient (RCR) | payer OTHER, SELFPAY | END 2021-09-26 23:59 | disposition home or self-care (01) | LOC: SST 06:00 | PROVIDERS: PCP Nurse Practitioner Family; Visit Provider Psychiatry & Neurology Neurology | DX: T75.4XXA Electrocution, initial encounter (principal); R41.841 Cognitive communication deficit | CPT/HCPCS: 92507 ==

== ENCOUNTER 2021-09-27 06:00 | Outpatient (RCR) | payer OTHER, SELFPAY | END 2021-10-27 23:59 | disposition home or self-care (01) | LOC: SST 06:00 | PROVIDERS: PCP Nurse Practitioner Family; Visit Provider Psychiatry & Neurology Neurology | DX: T75.4XXA Electrocution, initial encounter (principal); R41.841 Cognitive communication deficit | CPT/HCPCS: 92507 ==

== ENCOUNTER 2021-10-16 08:09 | Outpatient (CLI) | payer OTHER, SELFPAY ==
--- NOTE | 2021-10-16 08:13 | FL_ITS ---
WS: [id number] Exam: FL barium swallow modifd [id number] Date/Time of Exam: 10/16/2021 8:13 AM Reason For Exam: Other dysphagia Fluoroscopy time: minutes Modified barium swallow was performed in conjunction with the speech therapy service. The patient experienced great difficulty initiating the swallowing process at the level of the oropha rynx specifically elevating the tongue to the hard palate to initiate swallowing. The patient tolerat ed thin liquid, nectar consistency liquid, pudding consistency and solid barium foodstuffs without as piration or penetration. The patient ingested the barium pill without complication. FL/FL barium swallow modifd [id number] IMPRESSION: 1. No aspiration or penetration identified. 2. The patient experienced great difficulty initiating the swallowing process a t the level of the oropharynx. See above discussion. A separate report of recommendations and findings from the speech therapy depar tment will follow.
== END 2021-10-16 08:10 | disposition home or self-care (01) ==
PROVIDERS: PCP Nurse Practitioner Family; Visit Provider Psychiatry & Neurology Neurology
DX: R13.19 Other dysphagia (principal)
CPT/HCPCS: 74230; 92611

== ENCOUNTER 2021-10-28 06:00 | Outpatient (RCR) | payer OTHER, SELFPAY | END 2021-11-24 23:59 | disposition home or self-care (01) | LOC: SST 06:00 | PROVIDERS: PCP Nurse Practitioner Family; Visit Provider Psychiatry & Neurology Neurology | DX: T75.4XXS Electrocution, sequela (principal); W86.8XXS Exposure to other electric current, sequela; R41.841 Cognitive communication deficit | CPT/HCPCS: 92507 ==

== ENCOUNTER 2021-11-25 06:00 | Outpatient (RCR) | payer OTHER, SELFPAY | END 2021-12-25 23:59 | disposition home or self-care (01) | LOC: SST 06:00 | PROVIDERS: PCP Nurse Practitioner Family; Visit Provider Psychiatry & Neurology Neurology | DX: R41.89 Other symptoms and signs involving cognitive functions and awareness (principal); T75.4XXS Electrocution, sequela | CPT/HCPCS: 92507 ==

== ENCOUNTER 2022-04-29 15:01 | Observation (INO) | payer OTHER, MEDICARE, SELFPAY ==
[2022-04-29] VITALS (11 sets, daily range): BP systolic 119–149; BP diastolic 68–92; PULSE 63–159; RESP 12–19; TEMP 36.4; O2SAT 94–98; BMI 27.0
--- NOTE | 2022-04-29 15:23 | XR_ITS ---
WS: [id number] Portable AP upright chest, 04/29/2022 Clinical Data: cp Comparison: Portable chest, 07/14/2019. Findings: No nodules, masses or effusions are seen. The heart is normal. The pulmonary vascularity is not increased. No pneumonia or pneumothorax is seen. There is a ventriculoperitoneal shunt catheter overlying the left side of the chest. Monitor leads are on the chest wall. XR/XR chest 1V portable [id number] Impression: Negative chest.
--- NOTE | 2022-04-29 15:23 | ECG_ITS ---
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 Measurements Intervals [place] Rate: 74 P: 42 NV: 129 QRS: 56 QRSD: 89 T: -18 QT: 362 QTc: 403 Interpretive Statements SINUS RHYTHM POSSIBLE LEFT ATRIAL ENLARGEMENT [-0.1mV P-WAVE IN V1/V2] ST DEVIATION AND MODERATE T-WAVE ABNORMALITY, CONSIDER ANTERIOR ISCHEMIA Compared to ECG 07/14/2019 07:45:09 Short NV interval no longer present T-wave abnormality still present Possible ischemia still present Electronically Signed On 04-29-2022 19:32:30 CDT by Marii Luna M.D. [id number]
[2022-04-29] MEDS: nitroglycerin 0.4 mg sublingual Tablet SUBLINGUAL ×3 (15:48→21:39)
[2022-04-29] MEDS: morphine 4 mg/mL SDV 1 mL IVP ×2 (15:52→20:12)
--- NOTE | 2022-04-29 15:56 | ECG_ITS ---
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 Measurements Intervals [place] Rate: 78 P: 58 NV: 136 QRS: 81 QRSD: 86 T: -8 QT: 358 QTc: 410 Interpretive Statements SINUS RHYTHM ST DEVIATION AND MODERATE T-WAVE ABNORMALITY, CONSIDER ANTEROLATERAL ISCHEMIA [-0.1+ mV T WAVE IN V3-V6] Compared to ECG 07/14/2019 07:45:09 Short NV interval no longer present T-wave abnormality still present Possible ischemia still present Electronically Signed On 04-29-2022 19:45:12 CDT by Marii Luna M.D. [email or web address] [email or web address].[email or web address]/store/[id number]
[2022-04-29 16:00] LABS: Basophils % 0.3 %; Hematocrit 45.9 % (37.0-47.0); Hemoglobin 14.8 g/dL (11.5-15.3); Lymphocytes # 2.2 10^3/uL (0.8-4.8); Lymphocytes % 21.8 %; Mean Corpuscular HGB Conc 32.2 g/dL (30.0-36.0); Mean Corpuscular Hemoglobin 29.1 pg (28.0-34.0); Mean Corpuscular Volume 90.2 fl (81-99); Mean Platelet Volume 9.3 fL (7.4-10.4); Monocytes # 0.8 10^3/uL (0.2-0.9); Monocytes % 7.8 %; Neutrophils # 7.06 10^3/uL (1.8-7.7); Neutrophils % 69.7 %; Nucleated Red Blood Cells % 0 %; Platelet Count 277 10^3/cmm (130-400); Red Blood Count 5.09 10^6/uL (4.1-5.3); White Blood Count 10.1 10^3/uL (4.0-10.0)
--- NOTE | 2022-04-29 16:53 | PM.HP ---
Providers/Chief Complaint Primary Care Provider: Jinny Fortune APN Chief Complaint: chest pain and arm pain History of Present Illness Nat Horton is a 61 year old female who has a very strong family history of coronary disease, today started having chest pain when she picked up her heavy bag around 1:30 PM. She describing her chest pain as chest tightness which was radiating towards her left shoulder and left arm. It lasted about 20 minutes she was nauseous and short of breath. No diaphoresis or vomiting. Patient stating that she is recovering from COVID-19 infection. Recent COVID PCR was negative. She is 5 weeks out. She is not requiring any oxygen. She continued his self fairly active. She is very concerned because of her family history. Patient is stating that since her COVID infection she is trying to avoid laying flat on the bed, she has been using more than 2 pillows in semi-Corona position. Denying orthopnea and PND and weight gain. Diagnosis in the ER revealed troponin 8, EKG showing ST depression T wave inversion, she is hemodynamically stable She still endorsing mild chest heaviness which she describing as uncomfortable feeling She took 2 doses of baby aspirin at home, loading dose given by the ER physician Review of Systems Const: Denies: fever(s) Eyes: Denies: change in vision ENMT: Denies: throat pain Card: Reports: chest pain Resp: Denies: dyspnea GI: Denies: abdominal pain : Denies: flank pain Musc: Denies: neck pain Skin/Breast: Denies: changing lesions Neuro: Denies: headache(s) Psych: Denies: anxiety Endo: Denies: polyuria Drake/Lymph: Denies: easy bruising All/Imm: Denies: urticaria Medications/Allergies Home Medications Medication Instructions Recorded Confirmed Last Taken Type levothyroxine 88 mcg tablet 88 mcg PO DAILY 05/17/20 04/29/22 04/28/22 History pantoprazole 40 mg tablet,delayed 40 mg PO DAILY 05/17/20 04/29/22 04/28/22 History release triamterene 37.5 1 cap PO DAILY 05/17/20 04/29/22 04/28/22 History mg-hydrochlorothiazide 25 mg capsule aspirin 81 mg tablet,delayed 81 mg PO DAILY 06/26/20 04/29/22 04/28/22 History release (Adult Low Dose Aspirin) cyclobenzaprine 10 mg tablet 10 mg PO TID PRN Pain 06/26/20 04/29/22 Unknown History multivitamin 1 tab PO DAILY 06/26/20 04/29/22 04/28/22 History tramadol 50 mg tablet 50 mg PO Q4H PRN Pain 11/18/20 04/29/22 04/28/22 History ondansetron 4 mg disintegrating 4 mg PO Q8H PRN nausea and 03/25/21 04/29/22 Unknown Rx tablet vomiting #15 tabs alprazolam 1 mg tablet 0.5 - 1 mg PO TID PRN Spasms 04/29/22 04/29/22 Unknown History fluticasone propionate 50 2 spray intranasal DAILY PRN 04/29/22 04/29/22 Unknown History mcg/actuation nasal Allergy Symptoms spray,suspension furosemide 20 mg tablet 20 mg PO DAILY PRN Edema 04/29/22 04/29/22 Unknown History memantine 10 mg tablet 10 mg PO BID 04/29/22 04/29/22 04/28/22 History mv-min-vit C 250 sx-wnpyin-migxd 2 tab PO DAILY 04/29/22 04/29/22 04/29/22 History HCl-herb 124 12.5 mg chewable tablet (Immune Support) oxybutynin chloride 15 mg 15 mg PO DAILY 04/29/22 04/29/22 04/28/22 History tablet,extended release 24 hr Allergies Allergy/AdvReac Type Severity Reaction Status Date / Time Corticosteroids AdvReac Intermediate edema Verified 04/29/22 16:41 (Glucocorticoids) PFSH Acute PFSH: Medical History Cervicalgia GERD (gastroesophageal reflux disease) Headache Hyperlipidemia Hypertension Hypothyroid Sebaceous cyst Sinus headache Surgical History History of colonoscopy with polypectomy History of hysterectomy for benign disease History of laparoscopic appendectomy History of laparoscopic cholecystectomy History of tonsillectomy Family History Other CAD (coronary artery disease) Cancer Diabetes Family history of premature coronary artery disease Hyperlipidemia Hypertension Lung disease Stroke Denies family history of Dementia Psychiatric illness Chronic kidney disease (CKD) Suicide Anesthesia complication Bleeding disorder Social History Smoking and tobacco status: never smoked Second hand smoke exposure: No Alcohol intake: never History of recent travel: No Vitals/I&O/Wt Last Vital Signs Temp 97.6 F 04/29/22 15:06 Pulse 67 04/29/22 16:12 Resp 14 04/29/22 16:12 BP 128/78 04/29/22 16:12 Pulse Ox 98 04/29/22 16:12 O2 Del Method 04/29/22 16:12 Weight last 48 hrs Weight 80.739 kg Physical Exam Narrative: Very pleasant cooperative elderly female S1, S2 Normal heart sounds without murmur Abdomen soft No audible stridor or wheezing Currently saturating well on room air Pleasant and cooperative Anxious appearing Abdomen is soft No signs of edema No sign of congestive heart failure Appropriate mood and affect Data : 04/29/22 15:50 04/29/22 15:50 A&P Assessment and plan (1) Unstable angina: Status: Acute Plan Unstable angina Considering strong family history T wave inversion, mild ST depression, first troponin is 8 Patient is describing typical chest pain She is to stating that she is experiencing chest heaviness She is hemodynamically stable I would go ahead and load her with Plavix, start statins, lisinopril and low-dose metoprolol I have notified Dr. Burk I will keep her n.p.o. in case an angiogram is needed overnight in case of worsening of his symptoms Check D-dimer DuoNeb every 4 as needed Anxiolytic on board Hold triamterene hydrochlorothiazide We will request echo, TSH Full code N.p.o. COVID-19 infection recovered 5 weeks out Attestations Medical Necessity Statement*: Anticipating more than 2 midnights for evaluation of angina Time Spent in Patient Care: 40 Coding Level of Care Code Acute Motors And Controls Tester for Aundrea Stafford Diagnoses Unstable angina I20.0
--- NOTE | 2022-04-29 17:01 | ED_ITS ---
HPI - General Adult General: Chief complaint: Chest Pain Stated complaint: chest pain and arm pain Time Seen by Provider: 04/29/22 15:27 History of Present Illness: CC: Chest Pain HPI: This is a 61 yo patient hx of family cardiac diseases presenting to the ED complaining of acute sudden onset chest pressure and occasionally sharp pain with radiation down the left arm. Patient reports no nausea without diaphoresis associate with this episode. The episode lasted for about 20 minutes. No associated with shortness of breath, chest pain or dyspnea on exertion. Pain is not tearing in nature and does not radiate to the back. Pain not associated with vomiting or PO intake. Denies any recent sympathomimetic drug use. Patient denies any cough. Denies palpitations, dysphagia, diaphoresis, radiation of pain to bilateral arms, jaw. Denies F/N/V/D. Patient denies any recent immobility, surgery, unilateral leg swelling, or prior PE. Patient denies any orthopnea. Onset: 230pm Duration: ongoing since 23pm Location: home Severity: mild/moderate Associated symptoms: Reports chest pain; Deny dyspnea, nausea, rash, palpitations or vomiting Review of Systems Const: Denies: fever(s) or chills Eyes: Denies: change in vision ENMT: Denies: mouth pain Card: Reports: chest pain and dyspnea on exertion; Denies: palpitations Resp: Denies: dyspnea or non-productive cough GI: Denies: abdominal pain, nausea, vomiting or diarrhea : Denies: dysuria Musc: Denies: extremity pain Skin/Breast: Denies: rash or new lesions Neuro: Denies: weakness in extremities Psych: Reports: other (Normal mood) Drake/Lymph: Denies: easy bruising PFSH ED PFSH: Medical History Cervicalgia GERD (gastroesophageal reflux disease) Headache Hyperlipidemia Hypertension Hypothyroid Sebaceous cyst Sinus headache Surgical History History of colonoscopy with polypectomy History of hysterectomy for benign disease History of laparoscopic appendectomy History of laparoscopic cholecystectomy History of tonsillectomy Family History Other CAD (coronary artery disease) Cancer Diabetes Family history of premature coronary artery disease Hyperlipidemia Hypertension Lung disease Stroke Denies family history of Dementia Psychiatric illness Chronic kidney disease (CKD) Suicide Anesthesia complication Bleeding disorder Social History Smoking and tobacco status: never smoked Second hand smoke exposure: No Alcohol intake: never History of recent travel: No Physical Exam Const: COMMON NORMALS: alert HENMT: COMMON NORMALS: atraumatic HEAD & SCALP: atraumatic MOUTH: moist mucous membranes not abnormal Eye: COMMON NORMALS: EOMs intact bilaterally and conjunctivae normal CONJUNCTIVA: Yes conjunctivae normal Neck/C-Spine: COMMON NORMALS: full ROM and supple Resp: COMMON NORMALS: normal respiratory effort and clear to auscultation bilaterally AUSCULTATION: clear to auscultation bilaterally Cardio: COMMON NORMALS: regular rate RATE: regular rate OTHER: 2+ radial pulses b/l GI: COMMON NORMALS: Soft to palpation and non-tender PALPATION: Yes Soft to palpation OTHER: No focal TTP. NO guarding rebound, guarding, rigidity. No CVA tenderness to percussion. Neg Mart/Neg McBurney's point tenderness, no suprabupic tenderness to palpation. Extremity: COMMON NORMALS: full ROM NARRATIVE EXTREMITY EXAM: no lower extremity edema b/l Neuro: SENSORIUM/ORIENTATION: Yes alert MOTOR EXAM: No Abnormal motor strength present and Other motor observations present (no focal motor deficits) Psych: COMMON NORMALS: speech normal SPEECH: Yes normal speech MOOD & AFFECT: Yes euthymic mood Course Vital Signs: Vital signs: Vital Signs Temperature 97.6 F 04/29/22 23:38 Pulse Rate 71 04/29/22 23:38 Respiratory Rate 19 H 04/29/22 23:38 Blood Pressure 119/71 04/29/22 23:38 Pulse Oximetry 94 04/29/22 23:38 Oxygen Delivery Me thod 04/29/22 21:00 MDM - General Adult Medical Decision Making [61]yo patient w/ hx of family hx of heart diseases presenting to the ED with evaluation of new onset o chest pain. HDS, pulse 2+ radially bilaterally, no signs of fluid overload, AAOx3, neuro exam intact. Workup: ECG x 3, CXR, CBC, BMP, Troponin x 3 Interventions: morphine and nitro sL prn pain Findings: ECG: No overt evidence of STEMI, hyperacute T waves, localizable STD or T wave inversions. No evidence of Brugada?s sign, delta wave, epsilon wave, significantly prolonged QTc, or malignant arrhythmia. No Q waves. Other Labs unremarkable for emergent problems. CXR: Without PTX, PNA, or widened mediastinum Last Stress Test: never Last Heart Catheterization: never HEART Score: 4 [6:00pm] On reassessment, the patient is HDS, complains of 2/10 chest pressure currently. Extensive family history and history is consistent with findings of T wave versions in V3 V4 V5, this is concerning for ACS. HEART score of 4. Disposition: admission Lab Data : 04/29/22 15:50 04/29/22 15:50 Radiology Impressions Chest X-Ray 04/29/22 15:23 Impression: Negative chest. Laboratory Results WBC 10.1 10^3/uL (4.0-10.0) H 04/29/22 15:50 RBC 5.09 10^6/uL (4.1-5.3) 04/29/22 15:50 Hgb 14.8 g/dL (11.5-15.3) 04/29/22 15:50 Hct 45.9 % (37.0-47.0) 04/29/22 15:50 MCV 90.2 fl (81-99) 04/29/22 15:50 MCH 29.1 pg (28.0-34.0) 04/29/22 15:50 MCHC 32.2 g/dL (30.0-36.0) 04/29/22 15:50 RDW 14.0 % (12.1-15.1) 04/29/22 15:50 Plt Count 277 10^3/cmm (130-400) 04/29/22 15:50 MPV 9.3 fL (7.4-10.4) 04/29/22 15:50 Neut % (Auto) 69.7 % 04/29/22 15:50 Lymph % (Auto) 21.8 % 04/29/22 15:50 Cassia % (Auto) 7.8 % 04/29/22 15:50 Eos % (Auto) 0.0 % 04/29/22 15:50 Baso % (Auto) 0.3 % 04/29/22 15:50 Neut # (Auto) 7.06 10^3/uL (1.8-7.7) 04/29/22 15:50 Lymph # (Auto) 2.2 10^3/uL (0.8-4.8) 04/29/22 15:50 Cassia # (Auto) 0.8 10^3/uL (0.2-0.9) 04/29/22 15:50 Eos # (Auto) 0.0 10^3/uL (0.0-0.8) 04/29/22 15:50 Baso # (Auto) 0.0 10^3/uL (0.0-0.1) 04/29/22 15:50 Nucleated RBC % (auto) 0 % 04/29/22 15:50 Nucleated RBCs # 0.0 /100WBC 04/29/22 15:50 Sodium 138 mmol/L (136-145) 04/29/22 15:50 Potassium 3.9 mmol/L (3.5-5.1) 04/29/22 15:50 Chloride 97 mmol/L (98-107) L 04/29/22 15:50 Carbon Dioxide 28 mmol/L (22-29) 04/29/22 15:50 Anion Gap 16.9 (5-19) 04/29/22 15:50 BUN 16 mg/dL (8-23) 04/29/22 15:50 Creatinine 0.7 mg/dL (0.5-0.9) 04/29/22 15:50 GFR Calculation 84.5 mL/min (90-130) L 04/29/22 15:50 Glucose 81 mg/dL (65-115) 04/29/22 15:50 Calculated Osmolality 286 mOsm/kg (285-295) 04/29/22 15:50 Calcium 9.9 mg/dL (8.5-10.5) 04/29/22 15:50 Total Bilirubin 0.2 mg/dL (0.15-1.2) 04/29/22 15:50 AST 29 U/L (0-32) 04/29/22 15:50 ALT 22 U/L (0-33) 04/29/22 15:50 Alkaline Phosphatase 252 IU/L (35-105) H 04/29/22 15:50 Troponin T Baseline 8 ng/L (0-10) 04/29/22 15:50 NT-Pro-B Natriuret Pep 189 pg/mL (0-125) H 04/29/22 15:50 Total Protein 7.7 g/dL (6.6-8.7) 04/29/22 15:50 Albumin 4.6 g/dL (3.5-5.2) 04/29/22 15:50 Globulin 3.1 g/dL (1.3-4.6) 04/29/22 15:50 Lipase 29 U/L (13-60) 04/29/22 15:50 TSH 7.35 uIU/mL (0.27-4.20) H 04/29/22 15:50 Imaging Data Other Imaging: Radiologist's impression: [employer] [address] XRay Report Signed Patient: Nat Horton Unit #: [id number] : 1960 Age/Sex: 61 / F ADM Date: 04/29/22 Loc: ER Room/Bed: Attending Dr: Ordering Provider/Ordering MD: Karan Carr MD Date of Service: 04/29/22 Procedure(s): XR chest 1V portable [id number] Accession Number(s): [id number] Report Number: [id number] WS: [id number] Portable AP upright chest, 04/29/2022 Clinical Data: cp Comparison: Portable chest, 07/14/2019. Findings: No nodules, masses or effusions are seen. The heart is normal. The pulmonary vascularity is not increased. No pneumonia or pneumothorax is seen. There is a ventriculoperitoneal shunt catheter overlying the left side of the chest. Monitor leads are on the chest wall. XR/XR chest 1V portable [id number] Impression: Negative chest. ? Dictated By: Libby Nicolas MD Signed By: Libby Nicolas MD Signed Date/Time: 04/29/221542 DD/ 41 Discharge Plan Discharge Patient Disposition: Admitted As Inpatient Admit Provider: Georgie Watt Clinical Impression: Chest pain Condition: Stable Coding Level of Care Code ED Group Leader for Chg Fwd Exam Comprehensive
[2022-04-29] MEDS: aspirin 325 mg Tablet PO (17:09)
[2022-04-29 17:12] LABS: Alanine Aminotransferase 22 U/L (0-33); Albumin Level 4.6 g/dL (3.5-5.2); Alkaline Phosphatase 252 IU/L (35-105); Blood Urea Nitrogen 16 mg/dL (8-23); Calcium 9.9 mg/dL (8.5-10.5); Carbon Dioxide 28 mmol/L (22-29); Chloride 97 mmol/L (98-107); Globulin 3.1 g/dL (1.3-4.6); Glomerular Filtration Rate 84.5 mL/min (90-130); Glucose 81 mg/dL (65-115); Lipase 29 U/L (13-60); NT Pro B Type Natriuretic Pept 189 pg/mL (0-125); Osmolality Calculated 286 mOsm/kg (285-295); Sodium 138 mmol/L (136-145); Total Bilirubin 0.2 mg/dL (0.15-1.2); Total Protein 7.7 g/dL (6.6-8.7); Troponin(5th) Baseline 8 ng/L (0-10)
[2022-04-29 17:15] LABS: Anion Gap 16.9 (5-19); Aspartate Amino Transferase 29 U/L (0-32); Potassium 3.9 mmol/L (3.5-5.1)
--- NOTE | 2022-04-29 17:51 | ECG_ITS ---
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 Measurements Intervals [place] Rate: 74 P: 64 DE: 141 QRS: 69 QRSD: 86 T: -4 QT: 367 QTc: 407 Interpretive Statements SINUS RHYTHM SEPTAL MYOCARDIAL INFARCTION , OF INDETERMINATE AGE [40+ ms Q WAVE IN V1/V2] MODERATE T-WAVE ABNORMALITY, CONSIDER ANTEROLATERAL ISCHEMIA [-0.1+ mV T WAVE IN V3-V6] Compared to ECG 04/29/2022 15:56:17 Myocardial infarct finding now present T-wave abnormality still present Possible ischemia still present Electronically Signed On 04-29-2022 19:44:15 CDT by Marii Luna M.D. [id number]
[2022-04-29 17:52] LABS: Thyroid Stimulating Hormone 7.35 uIU/mL (0.27-4.20)
--- NOTE | 2022-04-29 17:58 | PC.NURSE ---
Pt states she is having increase in chest pressure on the left side of her chest and down her left arm. I told Doctor Ryan and he said give another nitro which did, she rated pain at a 5 before the nitro, she stated some relief with the nitro, pain went down to a 3-4. Pt said she feels better at this time
[2022-04-29 18:01] LABS: D Dimer 0.35 ug/mIFEU (0-0.59)
[2022-04-29 18:19] LABS: Troponin 5 2HR 7.38 ng/L (0-10)
[2022-04-29 18:20] LABS: Troponin 5 2HR Delta -0.62 ABS# (0-10)
--- NOTE | 2022-04-29 18:21 | P.CONIM_ITS ---
Providers/Reason For Consult Consulting Physician/Specialty*: Cardiac vascular medicine Reason for Consult*: Chest pain Requesting Physician: Hospitalist Attending Physician: Hospitalist Primary Care Provider: Jinny Fortune APN History of Present Illness History of Present Illness Nat Horton is a 61 year old female who came to the emergency room today for chest pain. 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 She described it as a tightness which radiated to her left arm. She was nauseated and short of breath but no vomiting. There are 2 complicating factors here. The first is she is recovering from COVID. She had a positive test several weeks ago and then again about a week ago. She has been vaccinated with a 2 shot regimen and also had 1 booster. Also she is under some stress. She has a sister who is ill. Upon her arrival to the emergency room she still complains of some tightness in the chest and feels as though someone is squeezing her neck. Her blood count is normal as is her chemistry panel. Her first troponin is 8. Her chest x-ray is negative. All 3 EKGs reveal sinus rhythm with T wave inversion in leads V3 through V6. I looked in the old medical records and her EKG is the same now as it was several years ago. I also found an old cardiac catheterization from about 6 years ago which was normal. She has no prior history of heart disease. She has a history of GERD, chronic neck pain, headaches, dyslipidemia, hypertension and sleep apnea. Review of Systems Narrative: Review of systems is negative other than what is described above. Medications/Allergies Home Medications Medication Instructions Recorded Confirmed Last Taken Type levothyroxine 88 mcg tablet 88 mcg PO DAILY 05/17/20 04/29/22 04/28/22 History pantoprazole 40 mg tablet,delayed 40 mg PO DAILY 05/17/20 04/29/22 04/28/22 History release triamterene 37.5 1 cap PO DAILY 05/17/20 04/29/22 04/28/22 History mg-hydrochlorothiazide 25 mg capsule aspirin 81 mg tablet,delayed 81 mg PO DAILY 06/26/20 04/29/22 04/28/22 History release (Adult Low Dose Aspirin) cyclobenzaprine 10 mg tablet 10 mg PO TID PRN Pain 06/26/20 04/29/22 Unknown History multivitamin 1 tab PO DAILY 06/26/20 04/29/22 04/28/22 History tramadol 50 mg tablet 50 mg PO Q4H PRN Pain 11/18/20 04/29/22 04/28/22 History ondansetron 4 mg disintegrating 4 mg PO Q8H PRN nausea and 03/25/21 04/29/22 Unknown Rx tablet vomiting #15 tabs alprazolam 1 mg tablet 0.5 - 1 mg PO TID PRN Spasms 04/29/22 04/29/22 Unknown History fluticasone propionate 50 2 spray intranasal DAILY PRN 04/29/22 04/29/22 Unknown History mcg/actuation nasal Allergy Symptoms spray,suspension furosemide 20 mg tablet 20 mg PO DAILY PRN Edema 04/29/22 04/29/22 Unknown History memantine 10 mg tablet 10 mg PO BID 04/29/22 04/29/22 04/28/22 History mv-min-vit C 250 jc-iziits-mlhbh 2 tab PO DAILY 04/29/22 04/29/22 04/29/22 History HCl-herb 124 12.5 mg chewable tablet (Immune Support) oxybutynin chloride 15 mg 15 mg PO DAILY 04/29/22 04/29/22 04/28/22 History tablet,extended release 24 hr Allergies Allergy/AdvReac Type Severity Reaction Status Date / Time Corticosteroids AdvReac Intermediate edema Verified 04/29/22 16:41 (Glucocorticoids) Current Medications Generic Name Dose Route Start Last Admin Trade Name Freq PRN Reason Stop Dose Admin Nitroglycerin 0.4 mg 04/29/22 15:28 04/29/22 17:55 Nitroglycerin 0.4 Mg Sublingual Tablet SUBLINGUAL 0.4 bottle Q5M PRN Administration CHEST PAIN PFSH Acute PFSH: Medical History Cervicalgia GERD (gastroesophageal reflux disease) Headache Hyperlipidemia Hypertension Hypothyroid Sebaceous cyst Sinus headache Surgical History History of colonoscopy with polypectomy History of hysterectomy for benign disease History of laparoscopic appendectomy History of laparoscopic cholecystectomy History of tonsillectomy Family History Other CAD (coronary artery disease) Cancer Diabetes Family history of premature coronary artery disease Hyperlipidemia Hypertension Lung disease Stroke Denies family history of Dementia Psychiatric illness Chronic kidney disease (CKD) Suicide Anesthesia complication Bleeding disorder Social History Smoking and tobacco status: never smoked Second hand smoke exposure: No Alcohol intake: never History of recent travel: No Vitals/I&O/Wt Last Vital Signs Temp 97.6 F 04/29/22 15:06 Pulse 98 04/29/22 18:01 Resp 15 04/29/22 18:01 BP 137/81 04/29/22 18:01 Pulse Ox 98 04/29/22 18:01 O2 Del Method 04/29/22 18:01 Weight last 48 hrs Weight 178 lb Physical Exam Narrative: GENERAL: She is comfortable at rest, alert, slightly anxious. HEENT: Exam within normal limits. NECK: Supple without jugular vein distention. The carotid upstroke is normal without bruits. BACK: Exam normal. LUNGS: Clear. HEART: Regular rate and rhythm. ABDOMEN: Benign without organomegaly or tenderness. EXTREMITIES: No edema. NEUROLOGIC: Exam normal. SKIN: Unremarkable. Data : 04/29/22 15:50 04/29/22 15:50 A&P Assessment and plan (1) Chest pain: Status: Acute (2) Chronic migraine without aura, intractable, with status migrainosus: Status: Acute (3) Hypertension: Status: Acute Qualifiers: Hypertension type: essential hypertension Qualified Code(s): I10 - Essential (primary) hypertension (4) Hyperlipidemia: Status: Acute Qualifiers: Hyperlipidemia type: mixed hyperlipidemia Qualified Code(s): E78.2 - Mixed hyperlipidemia (5) Atypical chest pain: Status: Acute Plan This is likely not cardiac in origin. She had a normal coronary angiogram several years ago. Her EKG today is exactly the same as it has been over the last several years. This information is readily available in the [facility]. Her first troponin is negative. The second troponin is less than the first with a negative delta. At this point I do not feel she needs an echo and certainly does not need an angiogram. She may not need a stress test if everything settles down. I think this is very unlikely to be unstable angina. Consult Attestations Medical Necessity Statement: Could be discharged from the emergency room. 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
--- NOTE | 2022-04-29 21:44 | PC.NURSE ---
PATIENT STATES INCREASING MID CHEST PAIN, A BAND OF PAIN AROUND MY NECK , SENSATION OF NEEDING TO DEEP BREATHE AT TIMES, RADIATING PAIN TO LEFT JAW, NAUSEA THAT HAS BEEN PRESENT SINCE INITIAL ONSET OF CP VOICE NETWORK ADMINISTRATOR, BUT WORSE IN THE LAST 15 MINUTES, STATES THAT NITRO TABLET ADMIN BY PRIMARY NURSE SUBHA RN IS ALLEVIATING PAIN AND S/S ARE RESOLVING. PATIENT ON CONTINUOUS HEART MONITOR, NIBP AND CONT PULSE OX. WILL FOLLOW UP PAIN FOR CHANGES AND RESOLVE.
[2022-04-29 22:09] LABS: Troponin 5 6HR 7.13 ng/L (0-10)
[2022-04-29 22:16] LABS: Troponin 5 6HR Delta -0.87 ng/L (0-12)
--- NOTE | 2022-04-29 23:35 | PC.NURSE ---
Patient upset with roommate. Pt and family member made aware that we have no other available beds at this time. Patient wanting to be discharged home. Dr. Myers made aware who stated pt would have to leave AMA. Patient left AMA @ [id number]
--- NOTE | 2022-04-30 10:14 | PM.DCS ---
Discharge Providers Date of Admission: 04/29/22 17:01 Date of Discharge: April 30, 2022 Attending Provider at Admission: Georgie Watt MD Attending Provider at Discharge: Georgie Watt MD Primary Care Provider: Jinny Fortune APN Diagnoses at Discharge Discharge Diagnosis (1) Chest pain: Status: Acute (2) Chronic migraine without aura, intractable, with status migrainosus: Status: Acute (3) Hypertension: Status: Acute Qualifiers: Hypertension type: essential hypertension Qualified Code(s): I10 - Essential (primary) hypertension (4) Hyperlipidemia: Status: Acute Qualifiers: Hyperlipidemia type: mixed hyperlipidemia Qualified Code(s): E78.2 - Mixed hyperlipidemia (5) Atypical chest pain: Status: Acute Reason for Visit Reason for Visit: chest pain and arm pain Hospital Course Hospital Course I was looking for the patient on 04/30 however she is not on my list nor on MedSurg. I tried to call the ER to me that patient is on MedSurg [id number]. When I have verified with the director of pulmonary unit, I was told that patient left AMA last night after cardiology consultation. Discharge Data Studies Completed and Pending Completed Studies During Hospitalization Category Date Time Status XR chest 1V portable [id number] Stat Exams 04/29/22 15:23 Completed Radiology Impressions Chest X-Ray 04/29/22 15:23 Impression: Negative chest. Laboratory Results WBC 10.1 10^3/uL (4.0-10.0) H 04/29/22 15:50 RBC 5.09 10^6/uL (4.1-5.3) 04/29/22 15:50 Hgb 14.8 g/dL (11.5-15.3) 04/29/22 15:50 Hct 45.9 % (37.0-47.0) 04/29/22 15:50 MCV 90.2 fl (81-99) 04/29/22 15:50 MCH 29.1 pg (28.0-34.0) 04/29/22 15:50 MCHC 32.2 g/dL (30.0-36.0) 04/29/22 15:50 RDW 14.0 % (12.1-15.1) 04/29/22 15:50 Plt Count 277 10^3/cmm (130-400) 04/29/22 15:50 MPV 9.3 fL (7.4-10.4) 04/29/22 15:50 Neut % (Auto) 69.7 % 04/29/22 15:50 Lymph % (Auto) 21.8 % 04/29/22 15:50 [place] % (Auto) 7.8 % 04/29/22 15:50 Eos % (Auto) 0.0 % 04/29/22 15:50 Baso % (Auto) 0.3 % 04/29/22 15:50 Neut # (Auto) 7.06 10^3/uL (1.8-7.7) 04/29/22 15:50 Lymph # (Auto) 2.2 10^3/uL (0.8-4.8) 04/29/22 15:50 [place] # (Auto) 0.8 10^3/uL (0.2-0.9) 04/29/22 15:50 Eos # (Auto) 0.0 10^3/uL (0.0-0.8) 04/29/22 15:50 Baso # (Auto) 0.0 10^3/uL (0.0-0.1) 04/29/22 15:50 Nucleated RBC % (auto) 0 % 04/29/22 15:50 Nucleated RBCs # 0.0 /100WBC 04/29/22 15:50 D-Dimer 0.35 ug/mIFEU (0-0.59) 04/29/22 17:39 Sodium 138 mmol/L (136-145) 04/29/22 15:50 Potassium 3.9 mmol/L (3.5-5.1) 04/29/22 15:50 Chloride 97 mmol/L (98-107) L 04/29/22 15:50 Carbon Dioxide 28 mmol/L (22-29) 04/29/22 15:50 Anion Gap 16.9 (5-19) 04/29/22 15:50 BUN 16 mg/dL (8-23) 04/29/22 15:50 Creatinine 0.7 mg/dL (0.5-0.9) 04/29/22 15:50 GFR Calculation 84.5 mL/min (90-130) L 04/29/22 15:50 Glucose 81 mg/dL (65-115) 04/29/22 15:50 Calculated Osmolality 286 mOsm/kg (285-295) 04/29/22 15:50 Calcium 9.9 mg/dL (8.5-10.5) 04/29/22 15:50 Total Bilirubin 0.2 mg/dL (0.15-1.2) 04/29/22 15:50 AST 29 U/L (0-32) 04/29/22 15:50 ALT 22 U/L (0-33) 04/29/22 15:50 Alkaline Phosphatase 252 IU/L (35-105) H 04/29/22 15:50 Troponin T Baseline 8 ng/L (0-10) 04/29/22 15:50 Troponin T 120 Minute 7.38 ng/L (0-10) 04/29/22 17:39 Delta Troponin T -0.62 ABS# (0-10) L 04/29/22 17:39 Troponin T Hi Sens 6Hr 7.13 ng/L (0-10) 04/29/22 21:31 Troponin T Hi Sens 6Hr Delta -0.87 ng/L (0-12) L 04/29/22 21:31 NT-Pro-B Natriuret Pep 189 pg/mL (0-125) H 04/29/22 15:50 Total Protein 7.7 g/dL (6.6-8.7) 04/29/22 15:50 Albumin 4.6 g/dL (3.5-5.2) 04/29/22 15:50 Globulin 3.1 g/dL (1.3-4.6) 04/29/22 15:50 Lipase 29 U/L (13-60) 04/29/22 15:50 TSH 7.35 uIU/mL (0.27-4.20) H 04/29/22 15:50 Vitals Last Vital Signs Temp 97.6 F 04/29/22 23:38 Pulse 71 04/29/22 23:38 Resp 19 H 04/29/22 23:38 BP 119/71 04/29/22 23:38 Pulse Ox 94 04/29/22 23:38 O2 Del Method 04/29/22 21:00 Discharge Plan Discharge Patient Disposition: Home Condition: Stable Prescriptions: No Action tramadol 50 mg tablet 50 mg PO Q4H PRN (Reason: Pain) aspirin [Adult Low Dose Aspirin] 81 mg tablet,delayed release (DR/EC) 81 mg PO DAILY multivitamin Tablet 1 tab PO DAILY cyclobenzaprine 10 mg tablet 10 mg PO TID PRN (Reason: Pain) triamterene-hydrochlorothiazid 37.5-25 mg Capsule 1 cap PO DAILY levothyroxine 88 mcg Tablet 88 mcg PO DAILY pantoprazole 40 mg Tablet,Delayed Release (Dr/Ec) 40 mg PO DAILY ondansetron 4 mg tablet,disintegrating 4 mg PO Q8H PRN (Reason: nausea and vomiting) Qty: 15 0RF oxybutynin chloride 15 mg tablet extended release 24hr 15 mg PO DAILY alprazolam 1 mg tablet 0.5 - 1 mg PO TID PRN (Reason: Spasms) furosemide 20 mg tablet 20 mg PO DAILY PRN (Reason: Edema) Flonase 50 mcg/actuation [place],Suspension 2 spray INTRANASAL DAILY PRN (Reason: Allergy Symptoms) Rx Instructions: administer into each nostril memantine 10 mg tablet 10 mg PO BID Immune Support 250-12.5 mg Tablet,Chewable 2 tab PO DAILY Referrals: Tong,YESENIA Stearns [Primary Care Provider] - Patient Instructions: Opioid Safety Discharge Attestations Time Spent in Discharge Care*: less than 30 min Quality Metrics Clinical Quality Measures [ No reported AMI, CVA or VTE this stay] Coding Level of Care Code Acute g [facility] note Diagnoses Chest pain R07.9 Chronic migraine without aura, intractable, with status migrainosus G43.711 Hypertension I10 Hypertension type: essential hypertension Hyperlipidemia E78.2 Hyperlipidemia type: mixed hyperlipidemia Atypical chest pain R07.89
== END 2022-04-29 23:25 | disposition home or self-care (01) ==
LOC: ER 17:01 → MEDSURG 19:49
PROVIDERS: Emergency Medicine; Admitting Provider Internal Medicine; Emergency Provider Emergency Medicine; PCP Nurse Practitioner Family; Visit Provider Internal Medicine
DX: R07.89 Other chest pain (principal); G43.711 Chronic migraine without aura, intractable, with status migrainosus; I10 Essential (primary) hypertension; E78.2 Mixed hyperlipidemia; Z86.16 Personal history of COVID-19; K21.9 Gastro-esophageal reflux disease without esophagitis; M54.2 Cervicalgia; G89.29 Other chronic pain; E78.5 Hyperlipidemia, unspecified; G47.30 Sleep apnea, unspecified; Z79.82 Long term (current) use of aspirin; Z53.29 Procedure and treatment not carried out because of patient's decision for other reasons
CPT/HCPCS: 36415; 71045; 80053; 83690; 83880; 84443; 84484; 85025; 85378; 93005; 96374; 96376; 99285; G0378; J2270

== ENCOUNTER → 2023-04-29 13:29 | Outpatient (BNVA) | payer OTHER, MEDICARE, SELFPAY | PROVIDERS: PCP Nurse Practitioner Family; Visit Provider Internal Medicine | DX: E03.9 Hypothyroidism, unspecified (principal); E07.9 Disorder of thyroid, unspecified; E78.2 Mixed hyperlipidemia; Z79.890 Hormone replacement therapy | CPT/HCPCS: 99204 ==

== ENCOUNTER 2023-05-06 12:00 | Outpatient (CLI) | payer OTHER, MEDICARE, SELFPAY ==
[2023-05-06 13:41] LABS: Free T4 Free Thyroxine 1.27 ng/dL (0.82-1.77); Thyroid Stimulating Hormone 3.95 uIU/mL (0.27-4.20)
[2023-05-07 12:18] LABS: T3 Total 86 ng/dL (76-181)
[2023-05-10 10:45] LABS: Thyroglobulin AB <1 IU/mL (< or = 1); Thyroid Peroxidase Antobodies 1 IU/mL (<9)
[2023-05-12 14:44] LABS: TSH Receptor Binding Antibody <1.00 IU/L (< OR = 2.00)
== END 2023-05-06 12:01 | disposition home or self-care (01) ==
PROVIDERS: PCP Nurse Practitioner Family; Visit Provider Internal Medicine
DX: E03.9 Hypothyroidism, unspecified (principal)
CPT/HCPCS: 36415; 83516; 84439; 84443; 84480; 86376; 86800

== ENCOUNTER 2023-10-15 12:10 | Outpatient (CLI) | payer MEDICARE, OTHER, SELFPAY ==
[2023-10-15 13:32] LABS: Thyroid Stimulating Hormone 6.01 uIU/mL (0.27-4.20)
[2023-10-16 09:16] LABS: T3 Total 100 ng/dL (76-181)
[2023-10-18 14:05] LABS: Thyroid Peroxidase Antobodies <1 IU/mL (<9)
[2023-10-18 14:30] LABS: Thyroglobulin AB <1 IU/mL (< or = 1)
[2023-10-21 17:48] LABS: TSH Receptor Binding Antibody <1.00 IU/L (< OR = 2.00)
== END 2023-10-15 12:11 | disposition home or self-care (01) ==
LOC: LAB 12:10
PROVIDERS: PCP Nurse Practitioner Family; Visit Provider Internal Medicine
DX: E07.9 Disorder of thyroid, unspecified (principal); E03.9 Hypothyroidism, unspecified
CPT/HCPCS: 36415; 83516; 84439; 84443; 84480; 86376; 86800

== ENCOUNTER 2025-09-10 15:03 | Emergency (ER) | payer MEDICARE, OTHER, SELFPAY ==
--- OUTSIDE RECORDS SUMMARY | 2025-09-04 03:00 | XMS_ITS ---
Author Organization [facility] Address [address] [place] [address] Care Team Providers Care Ship Erector Name Role Phone Tong [facility] Primary Care Provider [facility] Unavailable Unavailable Allergies No Known Allergies REASON FOR VISIT Patient to clinic with complaint of head pain that started over weekend. Jagged pain that starts from the left and goes across to the right. Patient refuses flu vaccine., Pt's Influenza Vaccinationstatus needs to be documented under Preventive Medicine. Medications Medication SIG (Take, Route, Frequency, Duration) Notes Start Date End Date Status Triamterene-HCTZ 37.5-25 MG Tablet Oral; Duration: 90 Days Not-Taking tiZANidine HCl 2 MG Tablet TAKE 1 TABLET BY MOUTH TWICE A DAY NEEDED FOR MUSCLE SPASTICITY FOR 90 DAYS; Duration: 90 Not-Taking valACYclovir HCl 1 GM Tablet 1 tablet Orally three times a day; Duration: 7 days Not-Taking Jsudunumpz-PQBG-Ltzq-Cod 71-247-85-30 MG Capsule TAKE 1 CAPSULE BY MOUTH EVERY 4 HOURS NEEDED FOR HEADACHE FOR 15 DAYS Oral; Duration: 15 days 09/04/2025 Active SUMAtriptan Succinate 50 MG Tablet 1 tablet as needed, may take second dose at least 2 hours after first dose up to 4 tablets per day as needed Oral as directed; Duration: 30 days Active Fluconazole 150 MG Tablet TAKE 1 TABLET BY MOUTH EVERY DAY FOR 3 DAYS; Duration: 3 Not-Taking Spironolactone 25 MG Tablet TAKE 1 TABLET BY MOUTH EVERY DAY NEEDED FOR SWELLING FOR 90 DAYS; Duration: 90 Not-Taking OLANZapine 2.5 MG Tablet TAKE 1 TAB BY M OUTH AT BEDTIME FOR 5 CONSECUTIVE NIGHTS Oral; Duration: 5 Not-Taking Ondansetron 4 MG Tablet Disintegrating TAKE 1 TABLET BY MOUTH EVERY 8 HOURS NEEDED; Duration: 5 Active Triamcinolone Acetonide 0.1 % Cream 1 application Externally twice a day as directed; Duration: 30 days 01/26/2025 Not-Taking Levothyroxine Sodium 88 MCG Tablet TAKE 1 TABLET BY MOUTH EVERY DAY; Duration: 30 days Active Memantine HCl 10 MG Tablet TAKE 1 TABLET BY MOUTH TWICE A DAY; Duration: 90 Active Gabapentin 300 MG Capsule TAKE 1 CAPSULE BY MOUTH THREE TIMES A DAY DIRECTED FOR 30 DAYS; Duration: 30 Active oxyBUTYnin Chloride ER 15 MG Tablet Extended Release 24 Hour TAKE 1 TABLET BY MOUTH EVERY DAY FOR URINE; Duration: 90 Not-Taking Fesoterodine Fumarate ER 8 MG Tablet Extended Release 24 Hour TAKE 1 TABLET BY MOUTH EVERY DAY; Duration: 30 Active ALPRAZolam 0.5 MG Tablet 1/2 to 1 tab Or ally Twice a day prn anxiety; Duration: 30 days 09/04/2025 Active Pantoprazole Sodium 40 MG Tablet Delayed Release TAKE 1 TABLET BY MOUTH EVERY DAY; Duration: 90 Active Fluticasone Propionate 50 MCG/ACT Suspension SPRAY 1 SPRAY INTO EACH NOSTRIL EVERY DAY; Duration: 90 Active traZODone HCl 100 MG Tablet TAKE 1-2 TABLETS BY MOUTH AT BEDTIME NEEDED FOR SLEEP; Duration: 90 Active traMADol HCl 50 MG Tablet TAKE 1 TABLET BY MOUTH EVERY 4 HOURS NEEDED FOR PAIN FOR 30 DAYS Oral; Duration: 30 days 09/04/2025 Active Immunizations Vaccine Route Administration Date Status Comme nts Flucelvax Trivalent, Syringe 0.5 mL, PF Unknown 025 Refused Social History Tobacco Use: Social History Observation Description Date Details (start date - stop date) Never Smoker NA - NA Social History Tobacco Use: Social Info Question Answer Notes Tobacco Control (Standard) Tobacco use: Nonsmoker Section Notes: Depression screen completed on 12/04/2022 score 4 phq9 01/02/2025 Problems Problem Type SNOMED Code ICD Code Onset Dates Problem Status W/U Status Risk Notes Problem Migraine (88822237) Migraine (G43.909) Active confirmed Vital Signs Blood pressure systolic 122 mm Hg 09/04/20 25 Blood pressure diastolic 80 mm Hg 025 Heart Rate 74 /min 09/04/2025 Respiratory Rate 18 /min 09/04/2025 Height 68 in 09/04/2025 Weight 165 lbs 09/04/2025 BMI 25.09 kg/m2 09/04/2025 Oximetry 99 % 09/04/2025 Height-cm 172.72 cm 09/04/2025 Weight-kg 74.84 kg 09/04/2025 Encounters Encounter Location Date Provider Diagnosis [facility] Office [address] [id number] 09/04/2025 [facility] Encounter for immunization Z23 ; Hypothyroid E03.9 ; Immunization not carried out because of patient refusal Z28.21 ; Other headache syndrome G44.89 ; Anxiety F41.9 ; Nausea R11.0 ; Back pain M54.9 and Migraine G43.909 Assessments Encounter Date Diagnosis (ICD Code) Assessment Notes Treatment Notes Treatment Clinical Notes Section Notes 09/04/2025 Encounter for immunization (ICD-10 - Z23) 09/04/2025 Hypothyroid (ICD-10 - E03.9) 09/04/2025 Immunization not carried out because of patient refusal (ICD-10 - Z28.21) 09/04/2025 Other headache syndrome (ICD-10 - G44.89) butalbital combo toradol 60 mg im 09/04/2025 Anxiety (ICD-10 - F41.9) lorazepam 09/04/2025 Nausea (ICD-10 - R11.0) zofran 09/04/2025 Back pain (ICD-10 - M54.9) tramadol 09/04/2025 Migraine (ICD-10 - G43.909) sumatriptan 09/04/2025 Other Questions asked and answered; discharged to home. Plan Of Treatment Medication Medication Name Sig Start Date Stop Date Notes Tqucnkprru-BYHV-Ojpo-Cod 25-315-17-30 MG Capsule TAKE 1 CAPSULE BY MOUTH EVERY 4 HOURS NEEDED FOR HEADACHE FOR 15 DAYS Oral; Duration: 15 days 09/04/2025 SUMAtriptan Succinate 50 MG Tablet 1 tablet as needed, may take second dose at least 2 hours after first dose up to 4 tablets per day as needed Oral as directed; Duration: 30 days Ondansetron 4 MG Tablet Disintegrating TAKE 1 TABLET BY MOUTH EVERY 8 HOURS NEEDED; Duration: 5 ALPRAZolam 0.5 MG Tablet 1/2 to 1 tab Or ally Twice a day prn anxiety; Duration: 30 days 09/04/2025 traMADol HCl 50 MG Tablet TAKE 1 TABLET BY MOUTH EVERY 4 HOURS NEEDED FOR PAIN FOR 30 DAYS Oral; Duration: 30 days 09/04/2025 Treatment Notes Assessment Notes Other headache syndrome butalbital combo toradol 60 mg im Anxiety lorazepam Nausea zofran Back pain tramadol Migraine sumatriptan Other Questions asked and answered; discharged to home. Pending Test Test Name Order Date CT Head w/o Contrast-[id number] 09/04/2025 Next Appt Details Follow Up: prn, Reason: Medications Administered Medication Instructions Date of Administration Dosage Notes Ketorolac Tromethamine 09/04/2025 [address] [place] [id number] pt tolerated well/instructed to wait 20 min History and Physical Notes * HPI (History of Present Illness) Category Sub-Category Detail Notes Category Not es Provider Note patient is an alert 65 year old female known to practice and here for recheck and medications complains of headache so bad over weekend she was afraid having a stroke; now improved advised if happens again go to er verbalized understanding states onset headache on wednesday 3 days ago pain of a 10 now headache pain at a 5 on 1-10 scale will administer toradol 60 mg im refill butalbital combo prn headache refill migraine meds sumatriptan nausea; zofran refill tramadol prn severe pain back pain 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 NECK/THYROID: neck supple, full ra nge of motion, no JVD, without thyromegaly or masses HEART: Regular rate and rhy thm, S1 S2 normal LUNGS: clear to auscultatio n bilaterally, no wheezes, rales, or rhonchi NEUROLOGIC: alert and oriented, cerebellar function normal, cognitive exam grossly normal, gait normal SKIN: warm and dry EXTREMITIES: no clubbing, cyanosi s, or edema. PSYCH: alert, oriented, cog nitive function intact, cooperative with exam, good eye contact, mood/affect full range, speech clear Progress Notes * NANCI CHOU ADOB:[birth year] (65 yo F)Acc No.[id number]:09/04/2025 Progress Notes Patient: NANCI EVANS A Provider: Kandy Fortune BAR HOST :1960 A ge:65 Y S ex:Female Date:09/04/2025 Address:[address] [place], [place] [id number] Check In:08:53 AM CSTCheck O ut:10:09 AM AUDIENCE COORDINATOR Subjective: * Chief Complaints: * P atient to clinic with complaint of head pain that started over weekend. Jagged pain that starts from the left and goes across to the right. Patient refuses flu vaccine. Pt's Influenza Vaccination status needs to be documented under Preventive Medicine. 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 * ROS: G eneral - Multi System: Neurologic h eadaches . * Medical History: Problem:Anxiety (finding) , Status :: Active Problem:Hypothyroidism (disorder) , Status :: Active Urinary incontinence Medical History Verified * Sound Effects Person History: D ate of Last Period T otal Hyst. * OB History: M iscarriage(s) 1 . T otal living children 0 . T otal pregnancies 1 . * Surgical History: cholecystectomy 2017 hysterectomy, total 1985 tonsillectomy cyst removal on right shoulder cage, neck 2018 nerve stimulator, neck 2020 Surgical History verified. * Hospitalization/Major Diagno stic Procedure: see surgical hx Hospitalization Verified. * Family History: F ather: 55 yrs, Heart attack. M other: 87 yrs, lung cancer. F amily History Verified.. * Social History: T obacco Use: T obacco Control (Standard) T obacco use: N onsmoker S ocial History Verified. D epression screen completed on 12/04/2022 score 4 phq9 01/02/2025. * Medications: T akingtraMADol HCl 50 MG Tablet TAKE 1 TABLET BY MOUTH EVERY 4 HOURS NEEDED FOR PAIN FOR 30 DAYS Oral Wrrfjikzcu-KSYA-Kjhm-Cod 16-416-19-30 MG Capsule TAKE 1 CAPSULE BY MOUTH EVERY 4 HOURS NEEDED FOR HEADACHE FOR 15 DAYS Oral Fluticasone Propionate 50 MCG/ACT Suspension SPRAY 1 SPRAY INTO EACH NOSTRIL EVERY DAY Pantoprazole Sodium 40 MG Tablet Delayed Release TAKE 1 TABLET BY MOUTH EVERY DAY traZODone HCl 100 MG Tablet TAKE 1-2 TABLETS BY MOUTH AT BEDTIME NEEDED FOR SLEEP Levothyroxine Sodium 88 MCG Tablet TAKE 1 TABLET BY MOUTH EVERY DAY Gabapentin 300 MG Capsule TAKE 1 CAPSULE BY MOUTH THREE TIMES A DAY DIRECTED FOR 30 DAYS Memantine HCl 10 MG Tablet TAKE 1 TABLET BY MOUTH TWICE A DAY Fesoterodine Fumarate ER 8 MG Tablet Extended Release 24 Hour TAKE 1 TABLET BY MOUTH EVERY DAY Taking traMADol HCl 50 MG Tablet TAKE 1 TABLET BY MOUTH EVERY 4 HOURS NEEDED FOR PAIN FOR 30 DAYS Oral Taking Zwwhcbrokq-XSNE-Iudb-Cod 71-824-00-30 MG Capsule TAKE 1 CAPSULE BY MOUTH EVERY 4 HOURS NEEDED FOR HEADACHE FOR 15 DAYS Oral Taking Fluticasone Propionate 50 MCG/ACT Suspension SPRAY 1 SPRAY INTO EACH NOSTRIL EVERY DAY Taking Pantoprazole Sodium 40 MG Tablet Delayed Release TAKE 1 TABLET BY MOUTH EVERY DAY Taking traZODone HCl 100 MG Tablet TAKE 1-2 TABLETS BY MOUTH AT BEDTIME NEEDED FOR SLEEP Taking Levothyroxine Sodium 88 MCG Tablet TAKE 1 TABLET BY MOUTH EVERY DAY Taking Gabapentin 300 MG Capsule TAKE 1 CAPSULE BY MOUTH THREE TIMES A DAY DIRECTED FOR 30 DAYS Taking Memantine HCl 10 MG Tablet TAKE 1 TABLET BY MOUTH TWICE A DAY Taking Fesoterodine Fumarate ER 8 MG Tablet Extended Release 24 Hour TAKE 1 TABLET BY MOUTH EVERY DAY Not-TakingoxyBUTYnin Chloride ER 15 MG Tablet Extended Release 24 Hour TAKE 1 TABLET BY MOUTH EVERY DAY FOR URINE Triamcinolone Acetonide 0.1 % Cream 1 application Externally twice a day as directed ALPRAZolam 0.5 MG Tablet 1/2 to 1 tab Orally Twice a day prn anxiety Ondansetron 4 MG Tablet Disintegrating TAKE 1 TABLET BY MOUTH EVERY 8 HOURS NEEDED SUMAtriptan Succinate 50 MG Tablet Oral Spironolactone 25 MG Tablet TAKE 1 TABLET BY MOUTH EVERY DAY NEEDED FOR SWELLING FOR 90 DAYS Fluconazole 150 MG Tablet TAKE 1 TABLET BY MOUTH EVERY DAY FOR 3 DAYS OLANZapine 2.5 MG Tablet TAKE 1 TAB BY MOUTH AT BEDTIME FOR 5 CONSECUTIVE NIGHTS Oral Triamterene-HCTZ 37.5-25 MG Tablet Oral valACYclovir HCl 1 GM Tablet 1 tablet Orally three times a day tiZANidine HCl 2 MG Tablet TAKE 1 TABLET BY MOUTH TWICE A DAY NEEDED FOR MUSCLE SPASTICITY FOR 90 DAYS Medication List reviewed and reconciled with the patientNot-Taking oxyBUTYnin Chloride ER 15 MG Tablet Extended Release 24 Hour TAKE 1 TABLET BY MOUTH EVERY DAY FOR URINE Not-Taking Triamcinolone Acetonide 0.1 % Cream 1 application Externally twice a day as directed Not-Taking ALPRAZolam 0.5 MG Tablet 1/2 to 1 tab Orally Twice a day prn anxiety Not-Taking Ondansetron 4 MG Tablet Disintegrating TAKE 1 TABLET BY MOUTH EVERY 8 HOURS NEEDED Not-Taking SUMAtriptan Succinate 50 MG Tablet Oral Not-Taking Spironolactone 25 MG Tablet TAKE 1 TABLET BY MOUTH EVERY DAY NEEDED FOR SWELLING FOR 90 DAYS Not-Taking Fluconazole 150 MG Tablet TAKE 1 TABLET BY MOUTH EVERY DAY FOR 3 DAYS Not-Taking OLANZapine 2.5 MG Tablet TAKE 1 TAB BY MOUTH AT BEDTIME FOR 5 CONSECUTIVE NIGHTS Oral Not-Taking Triamterene-HCTZ 37.5-25 MG Tablet Oral Not-Taking valACYclovir HCl 1 GM Tablet 1 tablet Orally three times a day Not-Taking tiZANidine HCl 2 MG Tablet TAKE 1 TABLET BY MOUTH TWICE A DAY NEEDED FOR MUSCLE SPASTICITY FOR 90 DAYS Medication List reviewed and reconciled with the patient * Allergies: N .K.D.A.yesAllergies Verified. Objective: * Vitals: H t: 68 in, Wt:165lbs, Wt-k.84 kg, BMI:25.09Index, BP:122/80mm Hg, HR:74/min, RR:18/min, Oxygen sat %:99%, O2 Source: RA, Pain scale: 4 1-10, Ht-cm: 172.72 cm. * Examination: G eneral Examination: GENERAL APPEARANCE: a lert, well hydrated, in no distress, converses well uncomfortable due to pain. HEAD: n ormocephalic, atraumatic. EYES: P ERRL; normal conjunctiva. EARS: . ... NECK/THYROID: n eleanor supple, full range of motion, no JVD, without thyromegaly or masses. SKIN: w arm and dry. HEART: R egular rate and rhythm, S1 S2 normal. LUNGS: c lear to auscultation bilaterally, no wheezes, rales, or rhonchi. EXTREMITIES: n o clubbing, cyanosis, or edema.. NEUROLOGIC: a lert and oriented, cerebellar function normal, cognitive exam grossly normal, gait normal. PSYCH: a lert, oriented, cognitive function intact, cooperative with exam, good eye contact, mood/affect full range, speech clear. Assessment: * Assessment: 1. H ypothyroid - E03.9 (Primary) 2 . E ncounter for immunization - Z23? 3. I mmunization not carried out because of patient refusal - Z28.21 ?4. O ther headache syndrome - G44.89 5 . A nxiety - F41.9 6. N ausea - R11.0 7 . B ack pain - M54.9 8 . M igraine - G43.909 Plan: * Treatment: 2. A nxiety Refill ALPRAZolam Tablet, 0.5 MG, 1/2 to 1 tab, Orally, Twice a day prn anxiety, 30 days, 45, Start Date: 09/04/2025, Refills 2. Notes: lorazepam 3. N ausea Refill Ondansetron Tablet Disintegrating, 4 MG, TAKE 1 TABLET BY MOUTH EVERY 8 HOURS NEEDED, 5, 15 Tablet, Refills 5. Notes: zofran 4. B ack pain Refill traMADol HCl Tablet, 50 MG, TAKE 1 TABLET BY MOUTH EVERY 4 HOURS NEEDED FOR PAIN FOR 30 DAYS, Oral, 30 days, 60 Each, Start Date: 09/04/2025, Refills 2. Notes: tramadol 5. M igraine Refill SUMAtriptan Succinate Tablet, 50 MG, 1 tablet as needed, may take second dose at least 2 hours after first dose up to 4 tablets per day as needed, Oral, as directed, 30 days, 30, Refills 3.? Notes: sumatriptan 6. O thers Notes: Questions asked and answered; discharged to home. * Immunizations: Flucelvax Trivalent, Syringe 0.5 mL, PF (Not administered - Refused: Patient decision) (Encounter for immunization, Immunization not carried out because of patient refusal) * Therapeutic Injections: KetorolacTrtomethamine/Toradol : 60 mg (Route: Intramuscular) given by Griselda Parkinson on left hip (Other headache syndrome) * Procedure Codes: 3 079F DIAST BP 80-89 MM [id number] SYST BP LT 130 MM [id number] KetorolacTrtomethamine/[id number] THER/PROPH/DIAG INJ, SC/IM * Preventive Medicine: Screenings: A s Listed Below * . L AST WELLNESS VISIT (if today's visit is wellness, use today's date): Date: 0 01/02/2025 B REAST CANCER SCREENING: Date of most recent screenin 03/02/2025 Kai Prior breast cancer screening: h as never occurred Provider recommendation: F ollow up 6 months C ARE FOR OLDER ADULTS Patient was offered the opportunity to discuss advance care planning: Y es Patient took paperwork to discuss with family Functional Status N o Impairment for Functional Status Function Status Assessment date 0 01/02/2025 Medication review date 0 01/02/2025 Pain Assessment date 0 01/02/2025 Pain 7/10 C ERVICAL CANCER SCREENING: Cancer screening cervical (age 21-64)?Annual pap smear Provider recommendation: i s s/p hysterectomy C OLORECTAL CANCER SCREENING: Date of last colonoscopy 0 01/22/2025 Dr. Russell on 01/22/2025 Colorectal screening: h as been completed in the past D EPRESSION SCREENING: Date of most recent screenin 01/02/2025 PHQ inventory: w ith score of 0-4 F ALL RISK SCREENING Screening: T wo or more falls with injury in the past year F UNCTIONAL CAPACITY: Patient mobility: h as been negatively affected The patient maintains ability to: b athe herself, feed herself, get dressed, groom herself, lift arms above head, lift legs, move in the house/home, transfer, use the toilet, walk Independent self care: i s still possible O STEOPOROSIS SCREENING: Osteoporosis screening: h as never been completed V ACCINATIONS: Influenza vaccinations: i s rarely done Refuses 09/04/2025 * Follow Up: p rn Billing Information: * Visit Code: 43891 Office Visit, Est Pt., Level 3. * Procedure Codes: 3079F DIAST BP 80-89 MM HG. 3074F SYST BP LT 130 MM HG. J1885 KetorolacTrtomethamine/Toradol. 08918 THER/PROPH/DIAG INJ, SC/IM. Care Plan Details* * ENCE COORDINATOR Sign off status: Completed true * Provider: Kandy Fortune BAR HOST Date: 11/05/2024 Generated for Daysi olivera/Mariela/Fede on: 11/11/2024 06:56 PM AUDIENCE COORDINATOR
[2025-09-10 15:06] VITALS: BP 118/70; PULSE 71; RESP 18; TEMP 36.7; O2SAT 99
--- NOTE | 2025-09-10 15:09 | ECG_ITS ---
[facility] Test Date: 2025-09-10 Pat Name: Nat Horton Department: Room: Gender: Female Surgical Attendant: : 1960 Requested By: Edie Sargent Order Number: [id number] Jonny MD: Edison Lieberman M.D. Measurements Intervals [place]ub[place] Rate: 58 P: 62 MT: 137 QRS: 71 QRSD: 85 T: -72 QT: 398 QTc: 392 Interpretive Statements SINUS BRADYCARDIA ST DEVIATION AND MODERATE T-WAVE ABNORMALITY, CONSIDER ANTEROLATERAL ISCHEMIA [-0.1+ mV T-WAVE IN V3-V6] Compared to ECG 04/29/2022 17:51:03 Sinus rhythm no longer present Myocardial infarct finding no longer present T-wave abnormality still present Possible ischemia still present Electronically Signed On 09-11-2025 21:28:12 EMBEDDED SYSTEMS SOFTWARE ENGINEER by Edison Lieberman M.D. [email or web address]
--- NOTE | 2025-09-10 15:09 | CTR_ITS ---
PROCEDURE INFORMATION: Exam: CT Head Without Contrast Exam date and time: 09/10/2025 3:15 PM Age: 65 years old Clinical indication: Stroke-like symptoms; Other: Symptoms of acute stroke TECHNIQUE: Imaging protocol: Computed tomography of the head without contrast. Radiation optimization: All CT scans at this facility use at least one of these dose optimization techniques: automated exposure control; mA and/or kV adjustment per patient size (includes targeted exams where dose is matched to clinical indication); or iterative reconstruction. Other technique: STROKE PROTOCOL was implemented. COMPARISON: CT cervical spin wo con* [id number] 03/25/2021 4:24 PM RADIATION DOSE METRICS: Total DLP (mGy-cm): 1051.8 FINDINGS: Brain: Normal. No hemorrhage. Unremarkable white matter. No mass effect. Cerebral ventricles: No ventriculomegaly. Paranasal sinuses: Visualized sinuses are unremarkable. No fluid levels. Mastoid air cells: Visualized mastoid air cells are well aerated. Bones: Unremarkable. No acute fracture. Soft tissues: Unremarkable. CT/CT head thrombolytic [id number] IMPRESSION: No acute intracranial abnormality. ASSESSMENT: ASPECTS ([place] Stroke Program Early CT Score) is 10.
--- NOTE | 2025-09-10 15:29 | W.ED.HA ---
HPI - Headache General: Chief Complaint: Headache Stated Complaint: confusion, left side numbness Time Seen by Provider: 09/10/25 15:29 History of Present Illness: 65-year-old female with a history of migraine headaches, hypertension, hyperlipidemia, hypothyroidism and GERD who presents emergency room with a left-sided headache and bilateral perioral numbness. She has no focal motor deficits. No altered mental status. She does appear very anxious. says she also cannot remember the last week. No fevers. No cough. No chest pain. No abdominal pain. Related Data Home Medications ?Medication ?Instructions ?Recorded ?Confirmed pantoprazole 40 mg tablet,delayed 40 mg PO DAILY 05/17/20 08/02/23 release triamterene 37.5 1 cap PO DAILY 05/17/20 08/02/23 mg-hydrochlorothiazide 25 mg capsule aspirin 81 mg tablet,delayed 81 mg PO DAILY 06/26/20 08/02/23 release (Adult Low Dose Aspirin) cyclobenzaprine 10 mg tablet 10 mg PO TID PRN Pain 06/26/20 08/02/23 multivitamin 1 tab PO DAILY 06/26/20 08/02/23 tramadol 50 mg tablet 50 mg PO Q4H PRN Pain 11/18/20 08/02/23 alprazolam 1 mg tablet 0.5 - 1 mg PO TID PRN Spasms 04/29/22 08/02/23 fluticasone propionate 50 2 spray intranasal DAILY PRN 04/29/22 08/02/23 mcg/actuation nasal Allergy Symptoms spray,suspension furosemide 20 mg tablet 20 mg PO DAILY PRN Edema 04/29/22 08/02/23 memantine 10 mg tablet 10 mg PO BID 04/29/22 08/02/23 mv-min-vit C 250 kg-idgiky-rzpaa 2 tab PO DAILY 04/29/22 08/02/23 HCl-herb 124 12.5 mg chewable tablet (Immune Support) oxybutynin chloride 15 mg 15 mg PO DAILY 04/29/22 08/02/23 tablet,extended release 24 hr Previous Rx's ?Medication ?Instructions ?Recorded ondansetron 4 mg disintegrating 4 mg PO Q8H PRN nausea and 03/25/21 tablet vomiting #15 tabs levothyroxine 88 mcg tablet See Rx Instructions .Route 08/10/24 .COMPLEX #30 tabs Allergies Allergy/AdvReac Type Severity Reaction Status Date / Time Corticosteroids AdvReac Intermediate edema Verified 08/02/23 09:20 (Glucocorticoids) Review of Systems Narrative: Constitutional symptoms: Negative except as documented in HPI. Skin symptoms: Negative except as documented in HPI. Eye symptoms: Negative except as documented in HPI. ENMT symptoms: Negative except as documented in HPI. Respiratory symptoms: Negative except as documented in HPI. Cardiovascular symptoms: Negative except as documented in HPI. Gastrointestinal symptoms: Negative except as documented in HPI. Genitourinary symptoms: Negative except as documented in HPI. Musculoskeletal symptoms: Negative except as documented in HPI. Neurologic symptoms: Negative except as documented in HPI. Psychiatric symptoms: Negative except as documented in HPI. Endocrine symptoms: Negative except as documented in HPI. PFSH ED PFSH: Medical History (Updated 09/10/25 @ 16:40 by Edie Serra MD) Cervicalgia Headache Hypertension Hyperlipidemia Hypothyroid GERD (gastroesophageal reflux disease) Sinus headache Sebaceous cyst Surgical History History of laparoscopic cholecystectomy History of laparoscopic appendectomy History of hysterectomy for benign disease History of tonsillectomy History of colonoscopy with polypectomy Family History Other CAD (coronary artery disease) Cancer Diabetes Family history of premature coronary artery disease Hyperlipidemia Hypertension Lung disease Stroke Denies family history of Dementia Psychiatric illness Chronic kidney disease (CKD) Suicide Anesthesia complication Bleeding disorder Social History Smoking and tobacco/nicotine status: never used tobacco/nicotine Second hand smoke exposure: No Alcohol intake: never Substance/Drug Use: never Physical Exam Narrative: EXAM NARRATIVE: General: Alert, no acute distress. Skin: Warm, dry. Head: Normocephalic, atraumatic. Neck: Supple, trachea midline. Eye: Extraocular movements are intact. Ears, nose, mouth and throat: mucosa moist. Cardiovascular: Regular, Normal peripheral perfusion. Respiratory: Lungs are clear to auscultation, respirations are non-labored, breath sounds are equal, Symmetrical chest wall expansion. Gastrointestinal: Soft, Nontender, Non distended Musculoskeletal: Normal ROM, no deformity. Neurological: Alert and oriented, No focal neurological deficit observed. Psychiatric: Cooperative, appropriate mood & affect. Course Vital Signs: Vital signs: Vital Signs Temperature 98.1 F 09/10/25 15:06 Pulse Rate 76 09/10/25 17:25 Respiratory Rate 16 09/10/25 17:25 Blood Pressure 113/77 09/10/25 17:25 Pulse Oximetry 94 09/10/25 17:25 Oxygen Delivery Me thod Room Air 09/10/25 15:59 MDM - Headache Medical Decision Making Medical decision making Patient's reason for coming to the emergency room: Headache, facial numbness Social determinants: Disabled. . I reviewed the patient's medical record. 65-year-old female with a history of migraine headaches, hypertension, hyperlipidemia, hypothyroidism and GERD I reviewed the patient's current home meds No anticoagulation Alternate historians: None Differential diagnosis: including but not limited to and based on the above HPI, review of systems and physical exam: This seems to be an atypical migraine but we will to get CT to be sure she is not having a stroke. Basic lab work. Orders placed to evaluate differential diagnosis based on the above differential, HPI and physical exam CT head: No acute intracranial process. No intracranial hemorrhage, no evidence of infarct. No evidence of acute fracture. This was reviewed and interpreted by myself the emergency room physician. I also reviewed the radiology report. EKG: Time 1545. Rate 58. Sinus bradycardia, nonspecific ST changes. No ectopy, normal MI & QRS intervals, This was reviewed and interpreted by myself the ER physician at 1550 Lab Review: Laboratory results were reviewed and interpreted by myself the emergency room physician. No leukocytosis. No anemia. No renal failure. Assessment of risk: Level of risk: Moderate risk patient. Elderly. Hospitalization considerations: I do not see any indication for admission today. Reexamination: Patient remained stable. No increased work of breathing. No altered mental status. No focal motor deficits. We discussed findings at length. Said she has been having issues with memory loss ever since she had some sort of stimulator put in that someone turned up too high she says. She does not have any evidence of stroke. Assessment and plan: Atypical migraine - 50 mg IV Benadryl - 30 mg IV Toradol - 10 mg IV Reglan - 8 mg IV Zofran - 30 mg IV Norflex - Discharged home - Discussed plan with patient. Answered any questions. - Evaluation and treatment of this problem were appropriate in the emergency setting. Lab Data 09/10/25 15:43 09/10/25 15:[address] 09/10/25 15:09 IMPRESSION: No acute intracranial abnormality. ASSESSMENT: ASPECTS ([place] Stroke Program Early CT Score) is 10. ADDENDUM: 09/10/25 1532 THIS REPORT CONTAINS FINDINGS THAT MAY BE CRITICAL TO PATIENT CARE. The findings were electronically communicated via transcribe final report with EDIE SERRA at 3:29 PM SHELL PRESS OPERATOR on 09/10/2025. The findings were acknowledged and understood. Laboratory Results WBC 7.47 10^3/uL (3.29-11.43) 09/10/25 15:43 RBC 4.82 10^6/uL (3.85-5.65) 09/10/25 15:43 Hgb 14.10 g/dL (11.27-16.99) 09/10/25 15:43 Hct 42.1 % (36-47) 09/10/25 15:43 MCV 87.3 fl (85-98) 09/10/25 15:43 MCH 29.3 pg (27-33) 09/10/25 15:43 MCHC 33.5 g/dL (30-55) 09/10/25 15:43 RDW 12.7 % (12.1-15.1) 09/10/25 15:43 Plt Count 182 10^3/cmm (157-399) 09/10/25 15:43 MPV 9.7 fL (7.4-10.4) 09/10/25 15:43 Neut % (Auto) 73.8 % 09/10/25 15:43 Lymph % (Auto) 17.3 % 09/10/25 15:43 [place] % (Auto) 7.6 % 09/10/25 15:43 Eos % (Auto) 0.3 % 09/10/25 15:43 Baso % (Auto) 0.7 % 09/10/25 15:43 Neut # (Auto) 5.52 10^3/uL (1.8-7.7) 09/10/25 15:43 Lymph # (Auto) 1.3 10^3/uL (0.8-4.8) 09/10/25 15:43 [place] # (Auto) 0.6 10^3/uL (0.2-0.9) 09/10/25 15:43 Eos # (Auto) 0.0 10^3/uL (0.0-0.8) 09/10/25 15:43 Baso # (Auto) 0.1 10^3/uL (0.0-0.1) 09/10/25 15:43 Nucleated RBC % (auto) 0 % 09/10/25 15:43 Nucleated RBCs # 0.0 /100WBC 09/10/25 15:43 PT 13.50 SECONDS (12.1-14.9) 09/10/25 15:43 INR 0.97 (0.8-1.2) 09/10/25 15:43 APTT 22.7 SECONDS (23.9-36.7) L 09/10/25 15:43 Sodium 139 mmol/L (136-145) 09/10/25 15:43 Potassium 3.4 mmol/L (3.5-5.1) L 09/10/25 15:43 Chloride 103 mmol/L (98-107) 09/10/25 15:43 Carbon Dioxide 25 mmol/L (22-29) 09/10/25 15:43 Anion Gap 14.4 (5-19) 09/10/25 15:43 BUN 10 mg/dL (8-23) 09/10/25 15:43 Creatinine 0.6 mg/dL (0.5-0.9) 09/10/25 15:43 GFR Calculation 99.7 mL/min (90-130) 09/10/25 15:43 Glucose 101 mg/dL (65-115) 09/10/25 15:43 POC Glucose 90 mg/dL (70-110) 09/10/25 15:42 Calculated Osmolality 287 mOsm/kg (285-295) 09/10/25 15:43 Calcium 9.3 mg/dL (8.5-10.5) 09/10/25 15:43 Total Bilirubin 0.4 mg/dL (0.15-1.2) 09/10/25 15:43 AST 18 U/L (0-32) 09/10/25 15:43 ALT 10 U/L (0-33) 09/10/25 15:43 Alkaline Phosphatase 144 U/L (35-105) H 09/10/25 15:43 Total Protein 6.4 g/dL (6.6-8.7) L 09/10/25 15:43 Albumin 4.1 g/dL (3.5-5.2) 09/10/25 15:43 Globulin 2.3 g/dL (1.3-4.6) 09/10/25 15:43 All radiology interpretation(s) finalized by discharge Discharge Plan Discharge Patient Disposition: Home Clinical Impression: Headache Condition: Stable Prescriptions: No Action tramadol 50 mg tablet 50 mg PO Q4H PRN (Reason: Pain) aspirin [Adult Low Dose Aspirin] 81 mg tablet,delayed release (DR/EC) 81 mg PO DAILY multivitamin Tablet 1 tab PO DAILY cyclobenzaprine 10 mg tablet 10 mg PO TID PRN (Reason: Pain) levothyroxine 88 mcg tablet See Rx Instructions .ROUTE .COMPLEX Qty: 30 0RF Dose Instruction: TAKE 1 TABLET BY MOUTH EVERY DAY Rx Instructions: TAKE 1 TABLET BY MOUTH EVERY DAY triamterene-hydrochlorothiazid 37.5-25 mg Capsule 1 cap PO DAILY pantoprazole 40 mg Tablet,Delayed Release (Dr/Ec) 40 mg PO DAILY ondansetron 4 mg tablet,disintegrating 4 mg PO Q8H PRN (Reason: nausea and vomiting) Qty: 15 0RF oxybutynin chloride 15 mg tablet extended release 24hr 15 mg PO DAILY alprazolam 1 mg tablet 0.5 - 1 mg PO TID PRN (Reason: Spasms) furosemide 20 mg tablet 20 mg PO DAILY PRN (Reason: Edema) Flonase 50 mcg/actuation [place],Suspension 2 spray INTRANASAL DAILY PRN (Reason: Allergy Symptoms) Rx Instructions: administer into each nostril memantine 10 mg tablet 10 mg PO BID Immune Support 250-12.5 mg Tablet,Chewable 2 tab PO DAILY Discharge Orders: Discharge ED (Routine); Ordered 09/10/25 Ordered By: Edie Serra Referrals: Jinny Fortune APN [Primary Care Provider, Nurse Practitioner] Discharge Diet: Usual diet Discharge Activity: Increase activity as tolerated Patient Instructions: Acute Headache (ED), Paresthesia (ED), Opioid Safety, Pain Management, Patient Portal & Daniella Instructions Activity Restrictions/Additional Instructions: Thank you for choosing [facility] for your healthcare needs today. You have been screened and evaluated and felt safe for discharge. Health conditions do change or evolve sometimes and as such it is important that you follow up with your Primary Doctor to be re checked, 3-5 days is a general good time frame for follow up. You are always welcome to return to the ED for re assessment if your symptoms are worsening or you have new concerns. (Please note that included in your discharge packet is information concerning opioid safety and pain management. This information is given to all patients who are discharged from the ER regardless of their discharge diagnosis or the medicines they usually take or are prescribed.) Print Language: Greek Coding Level of Care Code ED Boring Machine Set Up Operator for Aundrea Stafford
[2025-09-10 15:57] LABS: Hematocrit 42.1 % (36-47); Hemoglobin 14.10 g/dL (11.27-16.99); Mean Corpuscular HGB Conc 33.5 g/dL (30-55); Mean Corpuscular Hemoglobin 29.3 pg (27-33); Mean Corpuscular Volume 87.3 fl (85-98); Nucleated Red Blood Cells % 0 %; Platelet Count 182 10^3/cmm (157-399); Red Blood Count 4.82 10^6/uL (3.85-5.65); White Blood Count 7.47 10^3/uL (3.29-11.43)
[2025-09-10 15:59] VITALS: BP 117/64; PULSE 62; RESP 20; O2SAT 97
[2025-09-10 16:10] LABS: INR 0.97 (0.8-1.2); Prothrombin Time 13.50 SECONDS (12.1-14.9)
[2025-09-10 16:11] LABS: Partial Thromboplastin Time 22.7 SECONDS (23.9-36.7)
[2025-09-10 16:14] LABS: Alanine Aminotransferase 10 U/L (0-33); Albumin Level 4.1 g/dL (3.5-5.2); Alkaline Phosphatase 144 U/L (35-105); Anion Gap 14.4 (5-19); Aspartate Amino Transferase 18 U/L (0-32); Blood Urea Nitrogen 10 mg/dL (8-23); Calcium 9.3 mg/dL (8.5-10.5); Carbon Dioxide 25 mmol/L (22-29); Chloride 103 mmol/L (98-107); Globulin 2.3 g/dL (1.3-4.6); Glucose 101 mg/dL (65-115); Osmolality Calculated 287 mOsm/kg (285-295); Potassium 3.4 mmol/L (3.5-5.1); Sodium 139 mmol/L (136-145); Total Protein 6.4 g/dL (6.6-8.7)
[2025-09-10] MEDS: orphenadrine 30 mg/mL Inj 2 mL IVP (17:07)
[2025-09-10] MEDS: diphenhydrAMINE 50 mg/mL SDV 1mL IVP (17:07)
[2025-09-10] MEDS: metoclopramide 5 mg/mL SDV 2 mL 10 MG IVP (17:07)
[2025-09-10] MEDS: ondansetron 2 mg/ML SDV 2 mL 4 MG IVP (17:07)
[2025-09-10 17:25] VITALS: BP 113/77; PULSE 76; RESP 16; O2SAT 94
--- OUTSIDE RECORDS SUMMARY | 2025-09-10 18:56 | XMS_ITS | Encounter Summary ---
Author Organization [facility] Address [address] [place] [address] Care Team Providers Care Waste Disposal Attendant Name Role Phone Unavailable Primary Care Provider Unavailabl e Encounter Details Date Type Department Care Team (Latest Contact Info) Description 01/31/2001 Outpatient Historical [facility] Family Medicine [place] [address] [facility] [address] [place] [id number] Rio Moreno MD [address] [address] Rosacea (Primary Dx) Social History Tobacco Use Types Packs/Day Years Used Date Smoking Tobacco: Never Assessed Comments Unknown Sex and Gender Information Value Date Recorded Sex Assigned at Not on file Legal Sex Female 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
--- OUTSIDE RECORDS SUMMARY | 2025-09-10 18:56 | XMS_ITS | Encounter Summary ---
Author Organization [facility] Address [address] [place] [address] Care Team Providers Care Necktie Centralizing Machine Operator Name Role Phone Unavailable Primary Care Provider Unavailabl e Encounter Details Date Type Department Care Team (Latest Contact Info) Description 03/08/[address] 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
--- OUTSIDE RECORDS SUMMARY | 2025-09-10 18:56 | XMS_ITS | Encounter Summary ---
Author Organization [facility] Address [address] [place] [address] Care Team Providers Care Employment Consultant Name Role Phone Unavailable Primary Care Provider Unavailabl e Encounter Details Date Type Department Care Team (Latest Contact Info) Description 05/24/2001 Outpatient Historical [facility] Family Medicine [place] [address] [facility] [address] [place] [phone] Alton Han, DO NO ADDRESS ON FILE Other malaise and fatigue (Primary Dx); Predominant disturbance of emotions Social History Tobacco Use Types Packs/Day Years Used Date Smoking Tobacco: Never Assessed Comments Unknown Sex and Gender Information Value Date Recorded Sex Assigned at Not on file Legal 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
--- OUTSIDE RECORDS SUMMARY | 2025-09-10 18:56 | XMS_ITS | Encounter Summary ---
Author Organization [facility] Address [address] [place] [address] Care Team Providers Care Human Relations Manager Name Role Phone Unavailable Primary Care Provider Unavailabl e Encounter Details Date Type Department Care Team (Latest Contact Info) Description 06/07/2007 Outpatient Historical [facility] Family Medicine- [place] [address] [place] [address] Ravinder Devlin, PA NO ADDRESS ON FILE Unspecified Alopecia (Primary Dx); Other Malaise and Fatigue; Insomnia, Unspecified; Abnormal Weight Gain Social History Tobacco Use Types Packs/Day Years Used Date Smoking Tobacco: Never Assessed Comments Unknown Sex and Gender Information Value Date Recorded Sex Assigned at Not on file Legal Sex Female 5:26 AM FISCAL ECONOMIST Gender Identity Not on file Sexual Orientation Not on file documented as of this encounter Plan of Treatment Not on file documented as of this encounter Visit Diagnoses Diagnosis Alopecia, unspecified- Primary Other malaise and fatigue Insomnia, unspecified Abnormal weight gain documented in this encounter
--- OUTSIDE RECORDS SUMMARY | 2025-09-10 18:56 | XMS_ITS | Encounter Summary ---
Author Organization [facility] Address [address] [place] [address] Care Team Providers Care Dealmaker Name Role Phone Unavailable Primary Care Provider Unavailabl e Encounter Details Date Type Department Care Team (Latest Contact Info) Description 03/02/[address] 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
--- OUTSIDE RECORDS SUMMARY | 2025-09-10 18:56 | XMS_ITS | Clinical Summary ---
Author Organization [facility] Address [address] Nascimento: [place] [address] Care Team Providers Care Manager Functional Name Role Phone Unavailable Primary Care Provider Unavailabl e Allergies No known active allergies Medications tiZANidine (ZANAFLEX) 2 mg Capsule TAKE 1 CAPSULE BY MOUTH TWICE A DAY NEEDED FOR MUSCLE SPASTICITY 60 Capsule 5 1 Active predniSONE (DELTASONE) 20 mg tabletIndicatio ns:Allergic contact dermatitis due to plants, except food Take 3 tabs daily x 3 d, then 2 tabs daily x 3 d, then 1 tab daily x 3 d, then 1/2 tab daily x 4 d. 20 Tablet 0 7 Active Active Problems No known active problems Social History Tobacco Use Types Packs/Day Years Used Date Smoking Tobacco: Never Smokeless Tobacco: Never Alcohol Use Standard Drinks/Week Comments No 0 (1 standard drink = 0.6 oz pur e alcohol) Comments Unknown Sex and Gender Information Value Date Recorded Sex Assigned at Not on file Legal Sex Female 1:49 PM RECOVERY COORDINATOR Gender Identity Not on file Sexual Orientation Not on file Last Filed Vital Signs Vital Sign Reading Time Taken Comments Blood Pressure 138/70 05/04/2017 1:18 PM CDT Pulse 98 05/04/2017 1:18 PM CDT Temperature 36.7 C (98.1 F) 05/04/2017 1:18 PM CDT Respiratory Rate 18 05/04/2017 1:18 PM CDT Oxygen Saturation - - Inhaled Oxygen Concentration - - Weight 75.8 kg (167 lb) 05/04/2017 1:18 PM CDT Height 172.7 cm (5' 8 ) 05/04/2017 1:18 PM CDT Body Mass Index 25.39 05/04/2017 1:18 PM CDT Plan of Treatment Health Maintenance Due Date Last Done Comments DTAP/TDAP/TD VACCINES (1 - Tdap) 1977 BREAST CANCER SCREENING 1998 COLORECTAL SCREENING 2003 Colorectal Cancer Screening 2003 FIT-DNA Q 3 years 2003 FIT/FOBT Q 1 year 2003 Flex Sig/CT Colonography Q 5 years 2003 PNEUMOCOCCAL VACCINE 50+ YEARS (1 of 1 - PCV) 06/03/20 08 ZOSTER VACCINE (1 of 2) 2008 OSTEOPOROSIS SCREENING 2023 INFLUENZA VACCINE (#1) 2025 RSV VACCINE (60+ or ) (1 - 1-dose 75+ series) 2033 Medical Devices Implanted Type Area Trim Operator Device Identifier Shelf Expiration Date Model / Serial / Lot Lead [employer] [id number] Implanted:05/2021 (Quantity not on file) Lead [employer] [id number] / [id number] / Neuro Stimulator [employer] Wavewriter Alpha [id number]/05/20 21 Implanted:05/2021 (Quantity not on file) Neuro Stimulator [place] [employer] [id number] / [id number] / Description:Dr. Brian Stone as Insurance ASSN [employer]
--- OUTSIDE RECORDS SUMMARY | 2025-09-10 18:57 | XMS_ITS | Clinical Summary ---
Author Organization [facility] Address [address] [facility] [address] [place] [address] Care Team Providers Care Retail Account Executive Name Role Phone Unavailable Primary Care Provider Unavailabl e Medications predniSONE (DELTASONE) 20 mg tabletIndication s:Allergic contact dermatitis due to plants, except food Take 3 tabs daily x 3 d, then 2 tabs daily x 3 d, then 1 tab daily x 3 d, then 1/2 tab daily x 4 d. 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
--- OUTSIDE RECORDS SUMMARY | 2025-09-10 18:57 | XMS_ITS | Patient Health Record ---
Author Organization [facility] Address [address] [place] [address] Care Team Providers Care Safety Teacher Name Role Phone [facility] Primary Care Provider [phone] [facility] Unavailable Unavailable Allergies No Known Allergies Results Component Value Reference Range Flag Notes WBC Auto Diff--36629 Reviewed date:12/28/2024 12:13:22 PM Interpretation: Performing Lab: Notes/Report: Added by Discern Rules Neutro Auto% 69.5 40.0-70.0 % Lymph Auto% 19.4 22.0-44.0 % LOW Alexander Auto% 9.6 3.0-7.0 % HI Eos Auto% .6 2.0-4.0 % LOW Baso Auto% 0.6 0.0-1.0 % NRBC% .00 .00-.20 /100 intact WBC's Neutro Abs 4.80 .80-7.70 Absolute Neutrophil Count 4800 NA Lymph Abs 1.34 .10-4.10 Alexander Abs .66 .20-1.00 Eos Abs .04 .00-.40 Baso Abs .04 .00-.20 NRBC# .00 .00-.20 X10'3 Imm Gran Abs .02 .00-.10 Imm Gran% .3 .0-.4 % Schedule Confirmation Reviewed date:02/15/2025 07:17:47 AM Interpretation: Performing Lab: Notes/Report: Mammogram Screen Patirck Rickie w/CAD Schedule Confirmation Reviewed date:02/15/2025 07:20:30 AM Interpretation: Performing Lab: Notes/Report: Bone Densitometry Thyroid Stimulating Hormone (TSH) 38457 Reviewed date:12/28/2024 12:13:38 PM Interpretation: Performing Lab: Notes/Report: Diagnosis Description: Other specified abnormal findings of blood chemistry TSH 3.638 .358-3.740 MlU/ML Lipid Panel Reflex DLDL 8006 1, 15914 Reviewed date:12/28/2024 12:14:04 PM Interpretation: Performing Lab: Notes/Report: Diagnosis Description: Encounter for general adult medical examination without abnormal findings Trig 72 NA Classification Guidelines:Triglycerides Adults: >20yrs Desirable <150 Borderline High 150-199 High 200-499 Very high >=500 Children: Male 0-4 yr 22-99 5-9 yr 30-101 10-14 yr 32-125 15-19 yr 37-148 Children: Female 0-4 yr 34-112 5-9 yr 32-105 10-14 yr 37-131 15-19 yr 39-132 Chol 212 <=200 MG/DL HI HDL 58 39-96 MG/DL Reference Ranges:HDL Male: 5-9y 38-75 10-14y 37-74 15-19y 30-63 >=20y 40-59 Female: 5-9y 36-73 10-14y 37-70 15-19y 35-74 >=20y 40-59 CH/HDL 3.7 0.0-4.9 RATIO LDL 141 0-130 MG/DL HI LDL result is inaccurate , if Trig is >400 mg/dl. See DLDL result. Hemoglobin A1c 58082 Reviewed date:12/28/2024 12:13:51 PM Interpretation: Performing Lab: Notes/Report: Diagnosis Description: Encounter for screening for diabetes mellitus Hgb A1c 5.0 3.8-6.4 % Interpretation Of Hgb A1c: 4.5-6.2 % nondiabetics. >7.0 % diabetics. EAG 97 NA Estimated Aver age Glucose(EAG). Comprehensive Metabolic Pane l (CMP) 41478 Reviewed date:12/28/2024 12:14:26 PM Interpretation: Performing Lab: Notes/Report: Diagnosis Description: Encounter for general adult medical examination without abnormal findings Glucose Serum 88 71-110 MG/DL Testing p erformed at [facility], [address] [place] [address] [place] [address]. CLIA ID#: [id number] BUN 13 7-21 MG/DL Creat .80 .51-1.17 MG/DL O-mdwumn-y-benzoquinone imine (NAPQI) is a metabolite of acetaminophen, NAPQI concentrations of apparoximately 10 mg/L correlation to toxic levels of acetaminophen demonstrates a greater than or equil to 10% change in results. NAPQI concentrations greater than this may lead to falsely depressed results for patient samples. Use of this assay is not recommended for patients undergoing treatment with phenindione, due to the potential for falsely depressed results. GFR 80.4 NA Calculation pe rformed from GFR calculator provided by the [employer]. Glomerular Filtration rate(GRF) is the best overall index of kidney function. Normal GFR varies according to age,sex, body size, and declines with age. The [employer] recommends using the CKD-EPI Creatinine Equation(2020) to estimate GFR. BUN/Creat Ratio 16.2 12.0-20.0 % Total Protein 6.5 5.8-8.0 G/DL Albumin 4.4 3.2-4.8 G/DL Globulin 2.1 2.3-3.5 G/DL LOW Alb/Glob 2.1 0.8-2.2 Calcium 9.7 8.7-10.4 MG/DL Sodium 142 136-145 MMOL/L Potassium 4.0 3.5-5.1 MMOL/L Chloride 105 98-107 MMOL/L CO2 31.7 20.0-31.0 MMOL/L HI Anion Gap 9 5-15 Alk Phos 144 46-116 HI Bili Total .4 .3-1.2 MG/DL Use of this assay is not recommended for patients undergoing treatment with eltrombopag due to the potential for falsely elevated results. AST/SGOT 16 15-37 UNIT/L ALT/SGPT 14 12-78 UNIT/L Osmo Serum,Calculated 294 280-300 MOSM/KG Mammogram Screen Patrick Rickie w/ CAD-58367 Reviewed date:02/16/2025 04:24:37 PM Interpretation: Performing Lab: Notes/Report: See Below For Report Mammogram Screen Patrick Rickie w/CAD Diagnosis Description: Encounter for screening mammogram for malignant neoplasm of breast Read See Below For Report US Breast Left Limited-46848 Reviewed date:03/23/2025 02:36:18 PM Interpretation: Performing Lab: Notes/Report: qve=[id number]&org=iSite hnb=[id number]&org=iSite Mammogram Dianikolas Luong L T-13907 Reviewed date:03/23/2025 02:34:48 PM Interpretation: Performing Lab: Notes/Report: rjg=[id number]&org=iSite hau=[id number]&org=iSite Bone Densitometry-44579 Reviewed date:02/16/2025 04:23:50 PM Interpretation: Performing Lab: Notes/Report: kmt=[id number]&org=iSite RA Factor 62218, 01245 Reviewed date:01/15/2025 12:53:59 PM Interpretation: Performing Lab: Notes/Report: Diagnosis Description: Unspecified osteoarthritis, unspecified site RA Factor 5.2 .0-14.0 IU/mL Result less than 10 Iu/ml will be considered as Negative. CRP 39874 Reviewed date:01/15/2025 12:53:31 PM Interpretation: Performing Lab: Notes/Report: Diagnosis Description: Unspecified osteoarthritis, unspecified site CRP <.50 .40-1.00 MG/DL Uric Acid (B) 94103 Reviewed date:01/15/2025 12:53:05 PM Interpretation: Performing Lab: Notes/Report: Diagnosis Description: Unspecified osteoarthritis, unspecified site Uric Acid 5.6 2.6-6.0 MG/DL Sedimentation Rate 73552 Reviewed date:01/15/2025 12:52:51 PM Interpretation: Performing Lab: Notes/Report: Diagnosis Description: Unspecified osteoarthritis, unspecified site Sed Rate <1 0-30 MM/HR DAMIR IGG SCREEN W/ RFX 63615 Reviewed date:01/15/2025 12:53:16 PM Interpretation: Performing Lab: Notes/Report: Diagnosis Description: Unspecified osteoarthritis, unspecified site DAMIR IgG None Detected DAMIR EJ assays have been reported to have lower sensitivity than DAMIR IFA for systemic autoimmune rheumatic diseases(SARD). Negative results do not necessarily rule out SARD. The GSD Antinuclear Antibody Screening test is qualitative enzyme immunoassay (EIA) intended to screen for the presence of antinuclear antibodies (DAMIR) in human serum, against double stranded DNA (dsDNA,nDNA), histone, SS-A/Ro, SS-B/La, Sm, Sm/SCHEDULER,SCL-70,Gala-1, and ecntromeric antigens, along with sera positive for immunofluorescent (IFA) HEp-2 DAMIR. T4 [id number] Reviewed date:12/28/2024 12:14:50 PM Interpretation: Performing Lab: Notes/Report: Diagnosis Description: Other specified abnormal findings of blood chemistry Free T4 1.25 0.89-1.76 NG/DL [place] 79[address], 8 5007 Reviewed date:12/28/2024 12:14:39 PM Interpretation: Performing Lab: Notes/Report: Diagnosis Description: Encounter for general adult medical examination without abnormal findings WBC 6.9 4.5-11.0 X10'3 RBC 4.73 4.00-5.20 X10'6 Hgb 13.9 12.0-16.0 G/DL Hct 44.4 36.0-46.0 % MCV 93.9 80.0-100.0 FL MCH 29.4 27.0-31.0 PG MCHC 31.3 31.0-37.0 G/DL Platelet 215 150-400 X10'3 RDW-SD 44.2 35.0-49.0 FL RDW-CV 12.9 12.2-15.6 % MPV 10.3 9.2-12.0 FL Review Auto Diff Conf Colonoscopy, Average Risk Sc reening-G0121 Reviewed date:02/05/2025 03:03:28 PM Interpretation:Negative Performing Lab: Notes/Report: Negative Schedule Confirmation Reviewed date:03/06/2025 12:59:13 PM Interpretation: Performing Lab: Notes/Report: Mammogram Diag Patrick Unilat LT Schedule Confirmation Reviewed date:03/06/2025 12:59:03 PM Interpretation: Performing Lab: Notes/Report: US Breast Left Limited Schedule Confirmation Reviewed date:03/06/2025 12:58:54 PM Interpretation: Performing Lab: Notes/Report: Mammogram Diag Patrick Unilat LT Schedule Confirmation Reviewed date:03/06/2025 12:59:59 PM Interpretation: Performing Lab: Notes/Report: US Breast Left Limited US Breast Left Limited-37612 Reviewed date:03/06/2025 09:10:48 AM Interpretation: Performing Lab: Notes/Report: See Below For Report Mammogram Diag Patrick Unilat LT, US Breast Left Limited Diagnosis Description: Other abnormal and inconclusive findings on diagnostic imaging of breast Read See Below For Report US Breast Left Limited-82668 Reviewed date:03/06/2025 09:10:48 AM Interpretation: Performing Lab: Notes/Report: See Below For Report Mammogram Diag Patrick Unilat LT, US Breast Left Limited Diagnosis Description: Other abnormal and inconclusive findings on diagnostic imaging of breast Read See Below For Report Mammogram Diag Patrick Unilat L T-[id number] Reviewed date:03/06/2025 09:10:01 AM Interpretation: Performing Lab: Notes/Report: See Below For Report Mammogram Diag Patrick Unilat LT, US Breast Left Limited Diagnosis Description: Other abnormal and inconclusive findings on diagnostic imaging of breast Read See Below For Report Mammogram Diag Patrick Unilat L T-[id number] Reviewed date:03/06/2025 09:10:01 AM Interpretation: Performing Lab: Notes/Report: See Below For Report Mammogram Diag Patrick Unilat LT, US Breast Left Limited Diagnosis Description: Other abnormal and inconclusive findings on diagnostic imaging of breast Read See Below For Report Schedule Confirmation Reviewed date:02/15/2025 07:17:38 AM Interpretation: Performing Lab: Notes/Report: Mammogram Screen Patrick Rickie w/CAD Schedule Confirmation Reviewed date:06/18/2025 03:47:07 PM Interpretation: Performing Lab: Notes/Report: Bone Densitometry Schedule Confirmation Reviewed date:01/30/2025 10:39:27 AM Interpretation: Performing Lab: Notes/Report: Mammogram Screen Patrick Rickie w/CAD Mammogram Screen Patrick Rickie w/ CAD-[id number] Reviewed date:02/15/2025 11:33:07 AM Interpretation: Performing Lab: Notes/Report: oyd=[id number]&org=iSite ink=[id number]&org=iSite nrx=[id number]&org=iSite Reason For Referral Reason headaches; migraines ; Diagnosis 1 Other headache syndr ome (G44.89) Diagnosis 2 Memory deficit (R41. 3) Referral Organization [facility] [place] [facility] Referring Provider First Name Jinny Referring Provider Last Name Fortune Referring Provider Speciality Nurse Prac colleenioner Referred Provider Socrates Mejía Referred Provider Specialty Neurology Referral Priority Routine Reason colon cancer screeni ng Diagnosis 1 Colon cancer screeni ng (Z12.11) Referral Organization [facility] Referring Provider First Name Jinny Referring Provider Last Name Fortune Referring Provider Speciality Nurse Prac luis Referred Provider Michel Russell Referred Provider Specialty General Surg esther General Notes Griselda Parkinson 12/26 01:46:53 PM >Per Polina at Dr. Gonzalez, patient was seen today in clinic., Griselda Parkinson 02/05/2025 04:49:43 PM >See referral notes Referral Priority Routine Referral Appointment Date 01/09/2025 Reason Patient would like t o be seen by Dr. Marinelli to evaluate recent Diagnostic Mammogram. Diagnosis 1 Abnormal mammogram ( R92.8) Referral Organization [facility] Referring Provider First Name Jinny Referring Provider Last Name Fortune Referring Provider Speciality Nurse Margy smith Referred Provider Eden Marinelli Referred Provider Specialty General Surg esther General Notes Griselda Parkinson 02/26 02:40:39 PM >Patient states she has apt on March 29 2025, Griselda Parkinson, RN 04/09/2025 09:12:18 AM CDT > See referral notes. Referral Priority Routine Referral Appointment Date 03/29/2025 Medications Medication SIG (Take, Route, Frequency, Duration) Notes Start Date End Date Status ALPRAZolam 0.5 MG Tablet 1/2 to 1 tab Or ally Twice a day prn anxiety; Duration: 30 days 09/04/2025 Active Fluconazole 150 MG Tablet TAKE 1 TABLET BY MOUTH EVERY DAY FOR 3 DAYS; Duration: 3 Not-Taking Spironolactone 25 MG Tablet TAKE 1 TABLET BY MOUTH EVERY DAY NEEDED FOR SWELLING FOR 90 DAYS; Duration: 90 Not-Taking Triamterene-HCTZ 37.5-25 MG Tablet Oral; Duration: 90 Days Not-Taking OLANZapine 2.5 MG Tablet TAKE 1 TAB BY M OUTH AT BEDTIME FOR 5 CONSECUTIVE NIGHTS Oral; Duration: 5 Not-Taking tiZANidine HCl 2 MG Tablet TAKE 1 TABLET BY MOUTH TWICE A DAY NEEDED FOR MUSCLE SPASTICITY FOR 90 DAYS; Duration: 90 Not-Taking valACYclovir HCl 1 GM Tablet 1 tablet Orally three times a day; Duration: 7 days Not-Taking Pantoprazole Sodium 40 MG Tablet Delayed Release TAKE 1 TABLET BY MOUTH EVERY DAY; Duration: 90 Active Fluticasone Propionate 50 MCG/ACT Suspension SPRAY 1 SPRAY INTO EACH NOSTRIL EVERY DAY; Duration: 90 Active Levothyroxine Sodium 88 MCG Tablet TAKE 1 TABLET BY MOUTH EVERY DAY; Duration: 30 days Active Kicubfbowt-PHOK-Phvw-Cod 97-659-29-30 MG Capsule TAKE 1 CAPSULE BY MOUTH EVERY 4 HOURS NEEDED FOR HEADACHE FOR 15 DAYS Oral; Duration: 15 days 09/04/2025 Active traZODone HCl 100 MG Tablet TAKE 1-2 TABLETS BY MOUTH AT BEDTIME NEEDED FOR SLEEP; Duration: 90 Active SUMAtriptan Succinate 50 MG Tablet 1 tablet as needed, may take second dose at least 2 hours after first dose up to 4 tablets per day as needed Oral as directed; Duration: 30 days Active Memantine HCl 10 MG Tablet TAKE 1 TABLET BY MOUTH TWICE A DAY; Duration: 90 Active Gabapentin 300 MG Capsule TAKE 1 CAPSULE BY MOUTH THREE TIMES A DAY DIRECTED FOR 30 DAYS; Duration: 30 Active oxyBUTYnin Chloride ER 15 MG Tablet Extended Release 24 Hour TAKE 1 TABLET BY MOUTH EVERY DAY FOR URINE; Duration: 90 Not-Taking Ondansetron 4 MG Tablet Disintegrating TAKE 1 TABLET BY MOUTH EVERY 8 HOURS NEEDED; Duration: 5 Active Fesoterodine Fumarate ER 8 MG Tablet Extended Release 24 Hour TAKE 1 TABLET BY MOUTH EVERY DAY; Duration: 30 Active traMADol HCl 50 MG Tablet TAKE 1 TABLET BY MOUTH EVERY 4 HOURS NEEDED FOR PAIN FOR 30 DAYS Oral; Duration: 30 days 09/04/2025 Active Triamcinolone Acetonide 0.1 % Cream 1 application Externally twice a day as directed; Duration: 30 days 01/26/2025 Not-Taking Immunizations Vaccine Route Administration Date Status Comme nts Flucelvax Trivalent, Syringe 0.5 mL, PF Unknown 01/02/2025 Refused Flucelvax Trivalent, Syringe 0.5 mL, PF Unknown 09/04/2025 Refused Influenza (whole), CPT 84352 Inactive Unknown 05/10/2018 Administered Social History Tobacco Use: Social History Observation Description Date Details (start date - stop date) Never Smoker NA - NA Social History Depression Screening Social Info Question Answer Notes depression screening findings Findings Negative (0 -4) PHQ-9 Little interest or p ruth in doing things Not at all Feeling down, depressed, or hopeless Not at all Trouble falling or staying asleep, or sleeping t oo much Not at all Feeling tired or having little energy More than half the days Poor appetite or overeating More than half the d ays Feeling bad about yourself, or that you are a failure, or have let yourself or your family down Not at all Trouble concentrating on thi ngs, such as reading the newspaper or watching television Not at all Moving or speaking so slowly that other people could have noticed. Or the opposite ? being so fidgety or restless that you have been moving around a lot more than usual Not at all Thoughts that you would be b jose a off , or of hurting yourself in some way Not at all Total Score 4 Interpretation Minimal Depression Drugs/Alcohol: Social Info Question Answer Notes Drugs Have you used drugs other than those for medical reasons in the past 12 months? No Comprehensive Health Assessm ent Social Info Question Answer Notes *Social Determinants of Health Has lack of transportation kept you from medical appointments, meetings, work or from getting things needed for daily living? No Recently, have you worried t hat your food would run out before you got money to buy more? No Do you feel physically and emotionally safe wher e you currently live? Yes Are you worried about losing your housing? No Have you recently been gisela rned that your utilities would be turned off (electricity, gas, or water)? No Drug/Alcohol: Social Info Question Answer Notes AUDIT-C (Standard) Did you have a drink containing alcohol in the past year? No Points 0 Interpretation Negative Tobacco Use: Social Info Question Answer Notes Tobacco Control (Standard) Tobacco use: Nonsmoker Additional Details Category Social Info Options Details Drugs/Alcohol: Do you drink alcohol? No zzMigrated Social History Migrated Social History Smoking Status:Never smoked tobacco (finding) Section Notes: 04/27/2022 Depression screen completed on 12/04/2022 score 4 Depression screen completed on 12/04/2022 score 4 Depression screen completed on 12/04/2022 score 4 Depression screen completed on 12/04/2022 score 4 Depression screen completed on 12/04/2022 score 4 Depression screen completed on 12/04/2022 score 4 Depression screen completed on 12/04/2022 score 4 phq9 01/02/2025 Depression screen completed on 12/04/2022 score 4 phq9 01/02/2025 Depression screen completed on 12/04/2022 score 4 Depression screen completed on 12/04/2022 score 4 phq9 01/02/2025 Problems Problem Type SNOMED Code ICD Code Onset Dates Problem Status W/U Status Risk Notes Problem Primary insomnia (2178958) Primary insomnia (F51.01) Active confirmed Problem Headache disorder (237998311) Other headache syndrome (G44.89) Active confirmed Problem Anxiety (09277495) Anxiety (F41.9) Active confirmed Problem Incontinence (33816266) Incontinence in female (R32) Active confirmed Problem Sinusitis (33221072) Sinusitis (J32.9) Active confirmed Problem Exacerbation of moderate persistent asthma (disorder) (427660480) Moderate persistent asthmatic bronchitis with acute exacerbation (J45.41) Active confirmed Problem Abnormal mammogram (149374409) Abnormal mammogram (R92.8) Active confirmed Problem Migraine (72138526) Migraine (G43.909) Active confirmed Problem Poison micah (229293335) Poison micah (L23.7) Active confirmed Problem Hypothyroid (63294994) Hypothyroid (E03.9) Active confirmed Problem Muscle spasm (06987979) Muscle spasm (M62.838) Active confirmed Problem Sciatica (24481063) Sciatica, unspecified laterality (M54.30) Active confirmed Problem Depression (972224049) Other depression (F32.89) Active confirmed Problem Memory deficit (289131536) Memory deficit (R41.3) Active confirmed Problem Osteoarthritis (727508701) Osteoarthritis (M19.90) Active confirmed Problem Environmental allergy (480782960) Environmental allergies (Z91.09) Active confirmed Problem Lumbago with sciatica (057084210) Sciatica associated with disorder of lumbar spine (M53.86) Active confirmed Problem COVID-19 (842038044) COVID-19 (U07.1) Active confirmed Vital Signs Heart Rate 74 /min 09/04/2025 Temperature 97.3 degrees Fahrenheit 01/26/2025 Respiratory Rate 18 /min 09/04/2025 Height-cm 172.72 cm 09/04/2025 Blood pressure diastolic 80 mm Hg 09/04/2025 Oximetry 99 % 09/04/2025 Weight-kg 74.84 kg 09/04/2025 Height 68 in 09/04/2025 Blood pressure systolic 122 mm Hg 09/04/2025 Weight 165 lbs 09/04/2025 BMI 25.09 kg/m2 09/04/2025 Encounters Encounter Location Date Provider Diagnosis [address] [address] 12/27/2024 [facility] Low thyroid stimulat ing hormone (TSH) level R79.89 ; Screening for diabetes mellitus Z13.1 and Encounter for wellness examination Z00.00 [facility] [address] [address] 01/02/2025 [facility] Depression screening Z13.31 ; Encounter for immunization Z23 ; Immunization not carried out because of patient refusal Z28.21 ; Encounter for Medicare annual wellness exam Z00.00 ; Lavinia infection B37.9 ; Other headache syndrome G44.89 ; Neuropathic pain M79.2 ; Anxiety F41.9 ; Incontinence in female R32 ; Hypothyroid E03.9 ; Lumbar pain M54.50 and Encounter for screening mammogram for breast cancer Z12.31 [facility] [address] [place] [phone] 01/09/2025 [facility] Sciatica, unspecifie d laterality M54.30 ; Osteoarthritis M19.90 and Joint pain M25.50 [facility] [address] [place] [phone] 01/26/2025 [facility] Poison micah L23.7 and Rash R21 [facility] [address] [place] [phone] 09/04/2025 [facility] Encounter for immunization Z23 ; Hypothyroid E03.9 ; Immunization not carried out because of patient refusal Z28.21 ; Other headache syndrome G44.89 ; Anxiety F41.9 ; Nausea R11.0 ; Back pain M54.9 and Migraine G43.[address] [address] 12/04/[address] [address] 12/14/2024 [facility] [place] [address] [place] [address] 01/03/2025 [facility] Encounter for screen ing mammogram for breast cancer Z12.31 [facility] [place] [address] [place] [address] 01/05/2025 [facility] Colon cancer screeni ng Z12.11 ; Lumbar pain M54.50 and Menopause Z78.0 [facility] [place] [facility] [address] [place] [address] 01/16/2025 [facility] Colon cancer screeni ng Z12.11 [facility] [place] [address] [place] [address] 01/30/2025 [facility] Poison micah L23.7 [facility] [place] [address] [place] [address] 02/15/2025 [facility] Abnormal mammogram R 92.8 [facility] [place] [address] [place] [address] 02/22/2025 [facility] [place] [facility] [address] [facility] [place] [address] 02/22/2025 [facility] [place] [address] [place] [address] 03/05/2025 [facility] [place] [address] [place] [address] 05/18/2025 [facility] Other headache syndr ome G44.89 [facility] [place] [facility] [address] [place] [address] 07/16/2025 [facility] Assessments Encounter Date Diagnosis (ICD Code) Assessment Notes Treatment Notes Treatment Clinical Notes Section Notes 12/27/2024 Low thyroid stimulating hormone (TSH) level (ICD-10 - R79.89) 12/27/2024 Screening for diabetes mellitus (ICD-10 - Z13.1) 01/02/2025 Encounter for immunization (ICD-10 - Z23) 01/02/2025 Depression screening (ICD-10 - Z13.31) 01/03/2025 Encounter for screening mammogram for breast cancer (ICD-10 - Z12.31) 01/09/2025 Sciatica, unspecified laterality (ICD-10 - M54.30) 01/09/2025 Osteoarthritis (ICD-10 - M19.90) 01/16/2025 Colon cancer screening (ICD-10 - Z12.11) 01/26/2025 Rash (ICD-10 - R21) 01/26/2025 Poison micah (ICD-10 - L23.7) depomedrol/decadr on im triamcinolone cream 01/30/2025 Poison micah (ICD-10 - L23.7) 02/15/2025 Abnormal mammogram (ICD-10 - R92.8) 05/18/2025 Other headache syndrome (ICD-10 - G44.89) ok letter to please excuse from jury duty due to headache syndrome; frequently requires to rest in bed in dark room 09/04/2025 Encounter for immunization (ICD-10 - Z23) 01/05/2025 Colon cancer screening (ICD-10 - Z12.11) 01/05/2025 Lumbar pain (ICD-10 - M54.50) 09/04/2025 Hypothyroid (ICD-10 - E03.9) 01/09/2025 Joint pain (ICD-10 - M25.50) 09/04/2025 Immunization not carried out because of patient refusal (ICD-10 - Z28.21) 01/05/2025 Menopause (ICD-10 - Z78.0) 01/02/2025 Immunization not carried out because of patient refusal (ICD-10 - Z28.21) 12/27/2024 Encounter for wellness examination (ICD-10 - Z00.00) 01/02/2025 Encounter for Medicare annual wellness exam (ICD-10 - Z00.00) Please schedule your next AWV in 1 year. see eval 09/04/2025 Other headache syndrome (ICD-10 - G44.89) butalbital combo toradol 60 mg im 01/02/2025 Lavinia infection (ICD-10 - B37.9) diflucan 09/04/2025 Anxiety (ICD-10 - F41.9) lorazepam 09/04/2025 Nausea (ICD-10 - R11.0) zofran 01/02/2025 Other headache syndrome (ICD-10 - G44.89) butalbital combo 01/02/2025 Neuropathic pain (ICD-10 - M79.2) gabapentin 09/04/2025 Back pain (ICD-10 - M54.9) tramadol 09/04/2025 Migraine (ICD-10 - G43.909) sumatriptan 01/02/2025 Anxiety (ICD-10 - F41.9) alprazolam 01/02/2025 Incontinence in female (ICD-10 - R32) toviaz 01/02/2025 Hypothyroid (ICD-10 - E03.9) levothyroxine 01/02/2025 Lumbar pain (ICD-10 - M54.50) tramadol 01/02/2025 Encounter for screening mammogram for breast cancer (ICD-10 - Z12.31) 12/27/2024 Other Venipuncture performed. Right arm. One attempt. Pt tolerated well, bleeding controlled with light dressing.Sunni Cee LPN 01/02/2025 Other Questions asked and answered; discharged to home. 01/09/2025 Other Venipuncture: Performed by: Elizabeth BORGES Attempts: x1 Location: RAC Needle gauge: 21g Patient tolerated well. 01/26/2025 Other Questions asked and answered; discharged to home. 09/04/2025 Other Questions asked and answered; discharged to home. Plan Of Treatment Pending Test Test Name Order Date Bone Densitometry-[id number] 12/07/2022 CT Head w/o Contrast-[id number] 09/04/2025 Schedule Confirmation 07/12/2024 Mammogram Screening Digital Breast Tomos ynthesis, bilateral - [id number] 01/02/2025 Insurance Providers Payer Name Payer Address Payer Phone Subscriber Number Group Number Insured Name Patient Relationship to Insured Coverage Start Date Coverage End Date [place] [address] [place] [phone] [id number] NANCI CHOU Self - patient is the insured [facility] Benefit [address] [place] [address] [id number] Rohit Chou Spouse - patient is the spouse of the insured Medications Administered Medication Instructions Date of Administration Dosage Notes DEPO-Medrol 04/27/2022 40 mg [facility] 26157-554 3-1 pt tolerated well/instructed to wait 20 min DEPO-Medrol 03/09/2023 40 mg [facility] 20703-225 3-01 pt tolerated well/instructed to wait 20 min DEPO-Medrol 05/14/2023 40 mg [facility] 79367-898 3-01 pt tolerated well/instructed to wait 20 min DEPO-Medrol 05/27/2023 40 mg [facility] 07917-389 3-01 pt tolerated well/instructed to wait 20 min DEPO-Medrol 08/16/2023 40 mg [facility] 94190-135 3-01 pt tolerated well/instructed to wait 20 min DEPO-Medrol 02/22/2024 40 mg [facility] 69289-731 3-01 pt tolerated well/instructed to wait 20 min DEPO-Medrol 01/26/2025 40 mg [facility] 68544-019 3-01 pt tolerated well/instructed to wait 20 min dexAMETHasone 04/27/2022 4 mg [facility] 99954-6 39-30 pt tolerated well/instructed to wait 20 min dexAMETHasone 03/09/2023 4 mg [facility] 93565-9 423-00 pt tolerated well/instructed to wait 20 min dexAMETHasone 05/14/2023 4 mg [facility] 70111-1 419-00 pt tolerated well/instructed to wait 20 min dexAMETHasone 05/27/2023 4 mg [facility] 91173-4 419-00 pt tolerated well/instructed to wait 20 min dexAMETHasone 08/16/2023 4 mg [facility] 30322-1 423-00 pt tolerated well/instructed to wait 20 min dexAMETHasone 02/22/2024 4 mg [facility] 32577-0 423-00 pt tolerated well/instructed to wait 20 min dexAMETHasone 01/26/2025 4 mg [facility] 69439-4 423-00 pt tolerated well/instructed to wait 20 min Ketorolac Tromethamine 04/27/[address] [facility] 36558-234-60 pt tolerated well/instructed to wait 20 min Ketorolac Tromethamine 12/04/2022 60 mg [facility]: [address]-34 Patient tolerated well, advised to wait 20 min at clinic Ketorolac Tromethamine 09/04/[address]25 [address] [place] [address]-64 pt tolerated well/instructed to wait 20 min Medical (General) History Medical History History ICD Code Problem:Anxiety (finding) , Status :: Ac tive Problem:Hypothyroidism (disorder) , Stat us :: Active urinary incontinence Surgical History Surgery Date(Month/Year) cholecystectomy 2017 hysterectomy, total 1985 tonsillectomy cyst removal on right shoulder cage, neck 2018 nerve stimulator, neck 2020 Hospitalization History Reason Date(Month/Year) see surgical hx
== END 2025-09-10 17:39 | disposition home or self-care (01) ==
PROVIDERS: Emergency Provider Emergency Medicine; PCP Nurse Practitioner Family
DX: R51.9 Headache, unspecified (principal); Z79.82 Long term (current) use of aspirin; E78.5 Hyperlipidemia, unspecified; I10 Essential (primary) hypertension
CPT/HCPCS: 36415; 36416; 70450; 80053; 82962; 85025; 85610; 85730; 93005; 96374; 96375; 99285; J1200; J1885; J2360; J2405; J2765